=== PATIENT | female | born 1955 | race Caucasian/White ===

== ENCOUNTER 2017-04-21 10:43 | Outpatient (RCR) | payer BC ==
[~2017-04-21 10:43] MED LIST: BACL10TA PO; CANE1EAC26 MC; CYCL5TAB PO; DICL75TA2 PO; GABA-488 PO; HYDR-3820 PO; LEVO25TA5 PO; OXYC-197 PO; PRAV80TA2 PO; RANI300T4 PO; TIZA4CAP PO; TRAM50TA2 PO
== END 2017-05-01 13:00 | disposition home or self-care (01) ==
PROVIDERS: ATTEND Physician Assistant
DX: M48.06 Spinal stenosis, lumbar region (principal); M48.02 Spinal stenosis, cervical region; M70.62 Trochanteric bursitis, left hip

== ENCOUNTER → 2017-05-08 | Outpatient (CLI) | payer BC ==
--- NOTE | 2017-05-08 10:29 | Diagnostic Imaging Report ---
PROCEDURE: CT cervical spine without contrast. TECHNIQUE: Multiple contiguous axial images were obtained through the cervical spine without the use of intravenous contrast. Sagittal and coronal reformations were then performed. INDICATION: Neck pain. Status post spine fusion. FINDINGS: There is solid osseous fusion suggested between the vertebral bodies, C4-C7 levels with anterior plate and screws and disc spacers seen. The facet joints are not fused. The alignment of the posterior spinal line is satisfactory. There are remaining osteophytes eccentric to the left at C4/5, mild osteophytes at C5/6 and mild osteophytes at C6/7 level. There is a limited hemilaminectomy performed involving the inferior aspect of the left lamina of L4. There are mild posterior osteophytes along the uncovertebral joints at C3/4 bilaterally. The facet joints demonstrate mild degenerative changes. There is moderate to severe foraminal stenosis on the left at C4/5 level. Mild foraminal stenosis on the left side at L5/6 is seen. Mild to moderate foraminal stenosis bilaterally at C6/7 is noted. IMPRESSION: There is osseous fusion noted of vertebral bodies C4-C7 with intact anterior fusion hardware seen. Multilevel posterior osteophytes and uncovertebral joint arthropathy is described. There is multilevel foraminal stenosis. Dictated by: Dictated on workstation # [id number]
== END | disposition home or self-care (01) ==
LOC: RAD 08:59
PROVIDERS: ATTEND Orthopaedic Surgery Orthopaedic Surgery of the Spine
DX: M54.2 Cervicalgia (principal); Z98.1 Arthrodesis status
CPT/HCPCS: 72125

== ENCOUNTER → 2017-11-14 | Outpatient (CLI) | payer MEDICARE, OTHER ==
--- NOTE | 2017-11-14 10:37 | Diagnostic Imaging Report ---
PROCEDURE: MRI lumbar spine. TECHNIQUE: Multiplanar, multisequence MRI of the lumbar spine was performed without contrast. INDICATION: Back pain. FINDINGS: There is a transitional lumbosacral junction. There is prominent disc at S1/S2 seen. The alignment of the posterior spinal line is satisfactory. The vertebral body heights are preserved. There is Modic type I marrow edema changes around L4/L5 disc and the around S1/S2. There is disc desiccation particularly in the lower from lumbar spine with no significant disc height loss. There is a focal marrow lesion with the T1 and T2 hyperintensity seen in the sacrum and measures 1.5 x 1 x 1 cm to the right side of the central aspect of the body of S2 level. This is unchanged from 2015 exam and is most likely related to hemangioma. The cauda equina and conus medullaris appear grossly unremarkable. T12/L1: There is no disc herniation, no spinal canal or foraminal stenosis. L1/L2: There is a diffuse disc bulge and mild facet hypertrophy. No central canal or lateral recess stenosis. No foraminal stenosis. L2/L3: There is a mild disc bulge and there is a moderate facet hypertrophy bilaterally. No central canal, lateral recess or foramina stenosis. L3/L4: There is a mild disc bulge and moderate facet hypertrophy. No central canal, lateral recess or foraminal stenosis. L4/L5: There is a diffuse disc bulge and wciagzqd-hv-xzcgaj facet hypertrophy bilaterally. There is a mild central calcinosis reducing the AP dimension of the canal to 9.3 mm and there is bilateral mild lateral recess stenosis. There is moderate foramina stenosis on the right side abutting the exiting right L4 spinal nerve. The left foramen is patent. L5/S1: There is a diffuse disc bulge and bilateral severe facet hypertrophy. No central canal stenosis. There is a lateral recess stenosis of mild degree on the left and kcny-eh-thlymkoj degree on the right side. There is bilateral foraminal stenosis of xwregush-io-exyfdc degree worse on the left side with a prominent spur projecting into the foramen from the adjacent facet joint. S1/S2: No significant disc herniation. No spinal canal or foramina stenosis. IMPRESSION: Significant foraminal stenosis bilaterally at the L5/S1 and on the right side at L4/L5 level. Dictated by: Dictated on workstation # [id number]
== END ==
LOC: RAD 07:57
PROVIDERS: ATTEND Orthopaedic Surgery Orthopaedic Surgery of the Spine
DX: M48.07 Spinal stenosis, lumbosacral region (principal)
CPT/HCPCS: 72148

== ENCOUNTER 2017-12-20 15:11 | Outpatient (RCR) | payer MEDICARE, OTHER | END 2018-01-10 15:25 | disposition home or self-care (01) | PROVIDERS: ATTEND Orthopaedic Surgery Orthopaedic Surgery of the Spine | DX: M70.72 Other bursitis of hip, left hip (principal) ==

== ENCOUNTER → 2018-11-08 | Outpatient (CLI) | payer MEDICARE, OTHER ==
[~2018-11-08] MED LIST changes: -OXYC-197 PO; +OXYC1TAB87 PO
== END ==
LOC: RAD 10:10
PROVIDERS: ATTEND Internal Medicine
DX: Z12.31 Encounter for screening mammogram for malignant neoplasm of breast (principal)
CPT/HCPCS: 77067

== ENCOUNTER → 2021-08-23 | Outpatient (CLI) | payer MEDICARE, OTHER ==
[~2021-08-23] MED LIST changes: +ACHYD1T PO; -HYDR-3820 PO; -TRAM50TA2 PO; +TRM50T PO
--- NOTE | 2021-08-23 15:23 | Diagnostic Imaging Report ---
CT Lung Screening INDICATION: 21-hhdg-blmr smoking history, cessation in 2016, for baseline low-dose CT screening. TECHNIQUE: Noncontrast, low-dose CT imaging performed according to the lung cancer screening protocol. Auto Exposure Controls were utilize during the CT exam to meet ALARA standards for radiation dose reduction. COMPARISON: Baseline. FINDINGS: There is no lung mass. No suspicious pulmonary nodule. No acute infiltrate. No evidence for edema. Some heterogeneous air trapping, greatest in the upper lobes at the apices where there are few peripheral paraseptal thin-walled cysts. No tracheobronchomegaly. No thoracic lymphadenopathy. The aorta is nonaneurysmal. The visualized upper abdomen is nonacute. No suspicious chest wall lesion. IMPRESSION: No evidence for lung cancer or acute abnormalities. Continued annual low-dose CT screening as follow-up recommended. LUNG-RADS CATEGORY: 1 MODIFIER: None. OTHER SIGNIFICANT FINDINGS: Above. Dictated by: Dictated on workstation # [id number]
== END ==
LOC: RAD 14:15
PROVIDERS: ATTEND Internal Medicine
DX: Z12.2 Encounter for screening for malignant neoplasm of respiratory organs (principal); Z87.891 Personal history of nicotine dependence
CPT/HCPCS: 71271

== ENCOUNTER → 2021-08-31 | Outpatient (CLI) | payer MEDICARE, OTHER ==
--- NOTE | 2021-08-31 13:17 | Diagnostic Imaging Report ---
INDICATION: Postmenopausal state COMPARISON: None available FINDINGS: AP Spine L1-L4: [BMD (g/cm2): 1.017] [T-Score: -1.5] [Z-Score: 0.0] [BMD Previous: na] [BMD % Change: na] LT Hip Neck: [BMD (g/cm2): 0.699] [T-Score: -2.4] [Z-Score: -1.0] LT Hip Total: [BMD (g/cm2):0.696] [T-Score:-2.5] [Z-Score: -1.3] [BMD Previous: na] [BMD % Change: na] RT Hip Neck: [BMD (g/cm2):0.808] [T-Score:-1.7] [Z-Score:-0.2] RT Hip Total: [BMD (g/cm2):0.837] [T-score:-1.4] [Z-Score:-0.2] [BMD Previous:na] [BMD % Change:na] *Indicates significant change from prior examination based on 95% confidence level. World Health Organization criteria for BMD interpretation classify patients as Normal (T-score at or above -1.0), Osteopenic (T-score between -1.0 and -2.5) or Osteoporotic (T-score at or below -2.5). LIMITATIONS AND MODIFICATION: None. FRACTURE RISK (FRAX SCORE): The ten year probability of (%): Major Osteoporotic Fracture: [13.2] Hip Fracture: [2.8] IMPRESSION: 1. Osteoporosis. 2. Baseline examination. 3. See below National Osteoporosis Foundation guidelines on when to potentially initiate pharmacologic therapy. Based on the National Osteoporosis Foundation Guidelines, pharmacologic treatment should be initiated in any of the following, unless clinical conditions suggest otherwise: * Any patient with prior fragility fracture of the hip or vertebrae. A spine fracture indicates 5X risk for subsequent spine fracture and 2X risk for subsequent hip fracture. * Osteoporosis (T-score <-2.5). * Postmenopausal women and men age 50 and older with low bone mass/osteopenia (T-score between -1.0 and -2.5) by DXA and 10-year major osteoporotic fracture greater than 20% or a 10-year probability of hip fracture greater than 3%. These fracture risks are supplied above in the FRAX score, if applicable. * Clinician judgement and/or patient preferences may indicate treatment for people with 10-year fracture probabilities above or below these levels. Dictated by: Dictated on workstation # [id number]
== END ==
LOC: RAD 11:30
PROVIDERS: ATTEND Internal Medicine
DX: Z13.820 Encounter for screening for osteoporosis (principal); M81.0 Age-related osteoporosis without current pathological fracture; Z78.0 Asymptomatic menopausal state
CPT/HCPCS: 77080

== ENCOUNTER → 2022-02-03 | Outpatient (CLI) | payer MEDICARE, OTHER ==
[~2022-02-03] MED LIST changes: -CANE1EAC26 MC; +CANE1EAC44 MC
--- NOTE | 2022-02-03 11:43 | Diagnostic Imaging Report ---
INDICATION: Left hip pain. FINDINGS: 2 views. Femoral head is in good articulation with the acetabulum. There is narrowing of the joint space with moderate hypertrophic changes about the base of the femoral head and the acetabulum. There is sclerosis with subchondral cystic change of the acetabulum. There are no fractures. No soft tissue calcification. IMPRESSION: Moderate severe arthritic changes noted of the left hip. Dictated by: Dictated on workstation # [id number]
== END ==
LOC: ORTHO 11:11
PROVIDERS: ATTEND Orthopaedic Surgery
DX: M16.12 Unilateral primary osteoarthritis, left hip (principal)
CPT/HCPCS: 73502; G0463; 99203

== ENCOUNTER → 2022-04-12 | Outpatient (CLI) | payer MEDICARE, OTHER ==
--- NOTE | 2022-04-12 14:56 | Diagnostic Imaging Report ---
INDICATION: Bilateral hip pain. TIME OF EXAM: 12:00 PM. TECHNIQUE: An AP view of the pelvis and two views of each hip were obtained. FINDINGS: There are some degenerative changes involving the bilateral hips with joint space narrowing. There appears to be spurring at the femoral head/neck junctions bilaterally. There is a questionable lucency at the femoral head/neck junction on the lateral view of the left hip and a fracture cannot be entirely excluded. The rami appear intact. The SI joints and symphysis are not widened. IMPRESSION: Bilateral hip joint degenerative changes. There is a questionable lucency of the left hip and a fracture cannot be entirely excluded. CT or MRI of the left hip would be useful for further evaluation. Dictated by: Dictated on workstation # [id number]
== END ==
LOC: ORTHO 10:57
PROVIDERS: ATTEND Orthopaedic Surgery
DX: M16.12 Unilateral primary osteoarthritis, left hip (principal)
CPT/HCPCS: 73523

== ENCOUNTER 2022-04-19 08:42 | Outpatient (CLI) | payer MEDICARE, OTHER ==
[~2022-04-19] VITALS: Ht 154.9 cm; Wt 70.0 kg
[2022-04-19] MEDS ORDERED: ERGO1250 PO (09:17)
[2022-04-19] MEDS ORDERED: OMEP20TA56 PO (09:17)
[2022-04-19] MEDS ORDERED: GABA-490 PO (09:17)
[2022-04-19] MEDS ORDERED: GABA-486 PO (09:17)
[2022-04-19] MEDS ORDERED: ALEN70TA80 PO (09:17)
[2022-04-19] MEDS ORDERED: NAPR-1071 PO (09:17)
[2022-04-19] MEDS ORDERED: HYDR-3817 PO (10:20)
[2022-04-19 10:38] LABS: BASOPHILS % (AUTO) 1 % (0-10); EOSINOPHILS # (AUTO) 0.2 10^3/uL (0.0-0.3); EOSINOPHILS % (AUTO) 4 % (0-10); HEMATOCRIT 40 % (35-52); HEMOGLOBIN 13.4 g/dL (11.5-16.0); LYMPHOCYTES # (AUTO) 2.2 10^3/uL (1.0-4.0); LYMPHOCYTES % (AUTO) 42 % (12-44); MEAN CORPUSCULAR HEMOGLOBIN 34 pg (25-34); MEAN CORPUSCULAR HGB CONC 34 g/dL (32-36); MEAN CORPUSCULAR VOLUME 99 fL (80-99); MEAN PLATELET VOLUME 8.9 fL (9.0-12.2); MONOCYTES # (AUTO) 0.3 10^3/uL (0.0-1.0); MONOCYTES % (AUTO) 6 % (0-12); NEUTROPHILS # (AUTO) 2.4 10^3/uL (1.8-7.8); NEUTROPHILS % (AUTO) 47 % (42-75); PLATELET COUNT 215 10^3/uL (130-400); WHITE BLOOD COUNT 5.1 10^3/uL (4.3-11.0)
[2022-04-19 10:41] LABS: BILIRUBIN,URINE NEGATIVE (NEGATIVE); CLARITY,URINE SL CLOUDY; COLOR,URINE YELLOW; GLUCOSE, URINE (UA) NEGATIVE (NEGATIVE); KETONES,URINE NEGATIVE (NEGATIVE); LEUKOCYTE ESTERASE ,URINE 3+ (NEGATIVE); NITRITE,URINE NEGATIVE (NEGATIVE); PROTEIN,URINE NEGATIVE (NEGATIVE)
[2022-04-19 10:44] VITALS: BP 130/53
[2022-04-19 10:55] LABS: BACTERIA,URINE MODERATE /HPF; RBC,URINE RARE /HPF; SQUAMOUS EPITHELIAL CELL,UR 0-2 /HPF; WBC,URINE 25-50 /HPF
[2022-04-19 11:05] LABS: CALCIUM 8.8 MG/DL (8.5-10.1); CREATININE SERUM 0.78 MG/DL (0.60-1.30); POTASSIUM 3.9 MMOL/L (3.6-5.0)
[2022-04-19 13:37] LABS: INR 0.9 (0.8-1.4)
--- NOTE | 2022-04-19 14:10 | Diagnostic Imaging Report ---
Indication: Preop for hip replacement surgery. Time of Exam: 11:13 AM No prior studies are available for comparison. Heart size normal. Lungs are clear. Lungs are hyperinflated consistent with COPD. No effusion or pneumothorax is seen. There are postop changes in the lower cervical spine. IMPRESSION: COPD. No acute feature is detected. Dictated by: Dictated on workstation # [id number]
== END 2022-04-19 10:59 ==
LOC: PREOP 08:42
PROVIDERS: ATTEND Orthopaedic Surgery
DX: Z01.812 Encounter for preprocedural laboratory examination (principal); M16.12 Unilateral primary osteoarthritis, left hip
CPT/HCPCS: 36415; 71046; 80048; 81000; 85025; 85610; 85730; 87077; 87081; 87088; 93005

== ENCOUNTER 2022-05-02 06:00 | Inpatient (IN) | payer MEDICARE, OTHER ==
[2022-05-02] VITALS (11 sets, daily range): BP systolic 85–169; BP diastolic 46–101
[~2022-05-02] VITALS: Ht 154.9 cm; Wt 70.0 kg
[~2022-05-02 06:00] MED LIST changes: +ALEN70TA80 PO; +ERGO1250 PO; +GABA-486 PO; +GABA-490 PO; +HYDR-3817 PO; +NAPR-1071 PO; +OMEP20TA56 PO
[2022-05-02] MEDS ORDERED: CLINDAMYCIN 600 MG/50 ML IVPB 50 ML IV ONE ×2 (06:32→06:45)
[2022-05-02] MEDS: LACTATED RINGERS 1,000 ML IV PRN ×2 (06:40→09:10)
[2022-05-02] MEDS ORDERED: TRANEXAMIC ACID IR ONE ×2 (06:45)
[2022-05-02] MEDS ORDERED: SODIUM CHLORIDE IR ONE ×2 (06:45)
--- NOTE | 2022-05-02 07:03 | Progress Note-Pre Operative ---
Pre-Operative Progress Note H&P Reviewed The H&P was reviewed, patient examined and no changes noted. Date Seen by Provider: May 02, 2022 Time Seen by Provider: 07:00 Date H&P Reviewed: May 02, 2022 Time H&P Reviewed: 07:00 Pre-Operative Diagnosis: Left Hip Primary Osteoarthritis JAILYN MERCHANT MD May 02, 2022 07:03
[2022-05-02] MEDS ORDERED: LIDOCAINE PF 2% 5 ML (XYLOCAINE) VIAL ONE (07:06)
[2022-05-02] MEDS ORDERED: proPOfol 200 MG/20 ML (DIPRIVAN) VIAL IV ONE (07:06)
[2022-05-02] MEDS ORDERED: ROCURONIUM 50 MG/5 ML (ZEMURON) VIAL IV ONE (07:06)
[2022-05-02] MEDS ORDERED: ONDANSETRON 4 MG/2 ML (SDV) Z0FRAN ONE (07:06)
[2022-05-02] MEDS ORDERED: SEVOFLURANE (ULTANE) 15 ML INHAL SOLN ONE ×2 (07:06→09:40)
[2022-05-02] MEDS ORDERED: fentaNYL INJ 100 MCG/2 ML AMP ONE (07:07)
[2022-05-02] MEDS ORDERED: MIDAZOLAM 2 MG/2 ML (VERSED) VIAL ONE (07:07)
[2022-05-02] MEDS ORDERED: BISACODYL 5 MG (DULCOLAX) TABLET PO PRN (10:30)
[2022-05-02] MEDS ORDERED: ACETAMINOPHEN 500 MG TAB (TYLENOL) PO PRN (10:30)
[2022-05-02] MEDS ORDERED: MILK OF MAGNESIA 400 MG/5 ML 30 ML UDC PO PRN (10:30)
[2022-05-02] MEDS ORDERED: ONDANSETRON 4 MG/2 ML (SDV) Z0FRAN IV PRN (10:30)
--- NOTE | 2022-05-02 10:36 | Anesthesia-General Post-Op ---
General Patient Condition Mental Status/LOC: Same as Preop Cardiovascular: Satisfactory Nausea/Vomiting: Absent Respiratory: Satisfactory Pain: Controlled Complications: Absent Post Op Complications Complications None Follow Up Care/Instructions Patient Instructions None needed. Anesthesia/Patient Condition Patient Condition Patient is doing well, no complaints, stable vital signs, no apparent adverse anesthesia problems. No complications reported per nursing. SLIME MERRILL CRNA May 02, 2022 10:36
[2022-05-02] MEDS ORDERED: BUPIVACAINE 0.5% 30 ML (SENSORCAINE) VIAL ONE (10:37)
[2022-05-02] MEDS ORDERED: morphine INJ 10 MG/ML 1ML (SYR OR VIAL) IVP ONE (10:45)
[2022-05-02] MEDS ORDERED: ONDANSETRON 4 MG/2 ML (SDV) Z0FRAN IVP PRN (10:45)
[2022-05-02] MEDS ORDERED: PROMETHAZINE INJ 25 MG/ML (PHENERGAN) AMP IVP ONE (10:45)
[2022-05-02] MEDS ORDERED: HYDROmorphone 2 MG/ML VIAL (DILAUDID) IV ONE (10:45)
[2022-05-02] MEDS ORDERED: HYDROmorphone 2 MG/ML VIAL (DILAUDID) ONE (10:54)
--- NOTE | 2022-05-02 12:04 | Diagnostic Imaging Report ---
Indication: Left hip replacement. Time of Exam: 10:46 AM Correlation is made with prior mammogram from 04/12/2022. Since prior study patient has undergone left total hip arthroplasty. The prosthetic elements are in good position. No fracture or loosening is seen. Right hip does show osteoarthritic degenerative changes with superior medial joint space narrowing as well as osteophyte formation at the femoral head and neck junction. Rami are intact. IMPRESSION: 1. Satisfactory postop appearance to the left hip. No complicating features detected. 2. Osseous 3-D changes right hip. Dictated by: Dictated on workstation # [id number]
[2022-05-02] MEDS: NS IV 1000 ML 1,000 ML IV SCH ×2 (12:08→20:43)
[2022-05-02] MEDS: CLINDAMYCIN 600 MG/50 ML IVPB 50 ML IV SCH ×2 (13:06→20:43)
[2022-05-02] MEDS: HYDROcodone/APAP 7.5 MG/325 MG (LORTAB, LORCET PLUS) TABLET PO PRN ×2 (13:06→17:51)
--- NOTE | 2022-05-02 13:36 | Operative Report - Ortho ---
Operative Report Surgeon (s)/Practice Manager (s) Surgeon JAILYN MERCHANT MD Practice Manager n/a Pre-Operative Diagnosis Left Hip Primary Osteoarthritis Post-Operative Diagnosis same Operative Report Date of Procedure: May 02, 2022 Name of Procedure Performed: Left Total Hip Arthroplasty Description & Findings After obtaining informed consent and marking the patient in the preoperative holding area, the patient did receive antibiotics and was taken to the operating room. General anesthesia was induced and patient was positioned in the lateral decubitus position with the left side up. Left lower extremity was prepped and draped in the usual sterile fashion. Surgical timeout was taken. Posterolateral approach was utilized. Capsule and external rotators were taken down in one layer. Hip was dislocated without difficulty. Femoral neck osteotomy was performed and femoral head was removed. Acetabulum was exposed. Labrum and soft tissue was removed from the acetabulum. Sequential reaming was began beginning with a 43 mm reamer and reaming to a 50 mm. 50 mm trial was placed and had good fit. Trial was removed and the acetabulum was lavaged with normal saline; a 50 mm cup was impacted into place and had excellent press fit. A trial liner was put into place. Attention was turned to the femoral side, a Bike HUD cutter osteotome was used to removed bone near the greater trochanter. Canal finder was inserted followed by the lateralizing reamer. Sequential broaching was began with a 0 and was broached to a 4. Calcar planer was used. Trial 127 degree neck and -5 mm head were put into place. Hip was located and was found to have been lengthened. Hip was dislocate and the level of the femoral neck osteotomy was redefined. Size 4 broach with 127 neck and -5 head were oncea again trialed. Leg lengths were grossly equal; the hip was stable in position of sleep, and stable in flexion and internal rotation. This was accepted. Hip was dislocated. Acetabulum was exposed. Trial liner was removed and a polyethylene liner was locked into place; freer was used to check the locking mechanism. Attention was turned back to the femur, broach was removed and the canal was irrigated. A size 4 Accolade II was impacted into place and set at the same level as the broach. A -5 mm ceramic head was impacted onto the shaw taper of the stem. Hip was once again located and found to have grossly equal leg lengths with stability in position of sleep as well as flexion and internal rotation. A dilute betadine soak was performed followed by irrigation. Tranexamic acid was applied for hemostasis. The fascial layer was closed with #1 Ticron. The subcutaneous layer was closed with 2-0 Vicryl. Skin was closed with cee. Wound was dressed with xeroform, 4x4s, ABD, and paper tape. Patient was placed in abduction pillow and transferred to his hospital bed without difficulty and was stable to the recovery room. Anesthesia Type General Estimated Blood Loss 300 mL Specimen(s) collected/removed None JAILYN MERCHANT MD May 02, 2022 13:36
--- NOTE | 2022-05-02 13:40 | Physical Therapy Evaluation ---
PT Evaluation-General Medical Diagnosis Admission Date May 02, 2022 at 06:00 Medical Diagnosis: left HTOM Onset Date: May 02, 2022 Therapy Diagnosis Therapy Diagnosis: impaired mobility/weakness Height/Weight Height (Feet): 5 Height (Inches): 1.00 Weight (Pounds): 159 Weight (Ounces): 1.0 Weight Bear Status Right Lower Extremity: Right Full Weight Bearing Left Lower Extremity: Left Weight Bearing/Tolerated Referral Physician: Maricarmen Reason for Referral: Evaluation/Treatment Medical History Pertinent Medical History: OA Current History s/p elective left THOM Reviewed History: Yes Social History Home: Single Level Current Living Status: Other Family Entry Into Home: Stairs With Railing Prior Prior Level of Function SCALE: Activities may be completed with or without assistive devices. 2-Ftjsqkhgry-rdhiunf completes the activity by him/herself with no assistance from a helper. 5-Set-up or Clean-up Assistance-helper sets up or cleans up; patient completes activity. [place] assists only prior to or following the activity. 4-Supervision or Touching Assistance-helper provides verbal cues and/or touching/steadying and/or contact guard assistance as patient completes activity. Assistance may be provided throughout the activity or intermittently. 3-Partial/Moderate Assistance-helper does LESS THAN HALF the effort. [place] lifts, holds or supports trunk or limbs, but provides less than half the effort. 2-Substantial/Maximal Assistance-helper does MORE THAN HALF the effort. [place] lifts or holds trunk or limbs and provides more than half the effort. 6-Ppifykvds-qwhdlr does ALL the effort. Patient does none of the effort to complete the activity. Or, the assistance of 2 or more helpers is required for the patient to complete the activity. If activity was not attempted, code reason: 7-Patient Refused. 9-Not Applicable-not attempted and the patient did not perform the activity before the current illness, exacerbation or injury. 10-Not Attempted due to Environmental Limitations-(lack of equipment, weather restraints, etc.). 88-Not Attempted due to Medical Conditions or Safety Concerns. Bed Mobility: 6 Transfers (B,C,W/C): 6 Gait: 6 Stairs: 6 Indoor Mobility (Ambulation): Independent Stairs: Independent Prior Devices Use: None PT Evaluation-Current Subjective Patient agrees to PT. Pain Numeric Pain Scale: 5-Moderate Pain Location: Left Location Body Site: Hip Pain Description: Acute Objective Patient Orientation: Normal For Age Attachments: Oxygen, Lu Catheter, IV ROM/Strength ROM Lower Extremities left hip precautions/right LE WFL Strength Lower Extremities left LE 2/5 grossly/right LE 3/5 Integumentary/Posture Integumentary refer to nursing notes Bladder Incontinence: Lu Cath Posture WFL Neuromuscular (Tone, Coordination, Reflexes) grossly intact Sensory Vision: Functional Hearing: Functional Transfers Roll Left to Right (QC): 2 Sit to Lying (QC): 2 Lying to Sitting/Side of Bed(Q: 2 Sit to Stand (QC): 88 patient too medicated to perform OOB activity at this time Gait Does the Patient Walk?: No and Walking Goal IS indicated Mode of Locomotion: Walk Anticipated Mode of Locomotion: Walk Gait Assistive Device: FWW Balance Sitting Static: Fair Sitting Dynamic: Fair Assessment/Needs 66 y.o. female, will benefit from skilled PT to address functional strength and mobility to improve current LOF to safely return to home at maximum LOF. Rehab Potential: Good PT Second Hand Paper Machine Goals Second Hand Paper Machine Goals PT Second Hand Paper Machine Goals Time Frame: May 21, 2022 Roll Left & Right (QC): 6 Sit to Lying (QC): 6 Lying-Sitting on Side/Bed(QC): 6 Sit to Stand (QC): 6 Chair/Xcf-sm-Hpcbb Xfer(QC): 6 Toilet Transfer (QC): 6 Car Transfer (QC): 6 Walk 10 feet (QC): 6 Walk 50ft with 2 Turns (QC): 6 Walk 150 ft (QC): 6 PT Plan Problem List Problem List: Activity Tolerance, Functional Strength, Safety, Balance, Gait, Transfer, Bed Mobility Treatment/Plan Treatment Plan: Continue Plan of Care Treatment Plan: Bed Mobility, Education, Functional Activity Gera, Functional Strength, Gait, Safety, Therapeutic Exercise, Transfers Treatment Duration: May 21, 2022 Frequency: 11 times per week Estimated Hrs Per Day: .5 hour per day Patient and/or Family Agrees t: Yes Time/GCodes Time In: 1305 Time Out: 1321 Total Billed Treatment Time: 1321 Total Billed Treatment 1 visit EVModC 16 min WU ESPINOZA PT May 02, 2022 13:40
[2022-05-02] MEDS: DOCUSATE SODIUM 100 MG (COLACE) CAP PO SCH (20:36)
[2022-05-02] MEDS: GABAPENTIN 400 MG (NEURONTIN) CAP PO SCH (20:36)
[2022-05-02] MEDS ORDERED: CELECOXIB 100 MG (CeleBREX) CAP PO SCH (21:00)
[2022-05-03 00:09] VITALS: BP 126/58
[2022-05-03] MEDS: HYDROcodone/APAP 7.5 MG/325 MG (LORTAB, LORCET PLUS) TABLET PO PRN ×3 (00:37→18:57)
[2022-05-03 04:12] VITALS: BP 117/58
[2022-05-03] MEDS: GABAPENTIN 100 MG (NEURONTIN) CAP PO SCH ×4 (06:08→20:16)
[2022-05-03] MEDS: NS IV 1000 ML 1,000 ML IV SCH (06:10)
[2022-05-03 07:42] VITALS: BP 134/60
[2022-05-03] MEDS: CELECOXIB 100 MG (CeleBREX) CAP PO SCH ×2 (07:49→17:22)
[2022-05-03] MEDS: DOCUSATE SODIUM 100 MG (COLACE) CAP PO SCH ×2 (07:49→20:16)
[2022-05-03] MEDS: APIXABAN 2.5 MG (ELIQUIS) TABLET PO SCH ×2 (07:55→20:16)
--- NOTE | 2022-05-03 08:23 | Progress Note - Ortho ---
Progress Note Subjective Date of Exam 05/03/22 Chief Complaint POD #1 L THOM HPI/Events since last exam some difficulty with nausea yesterday, pain controlled this AM, getting ready to work with therapy Review of Systems - Allergies: Coded Allergies: Penicillins (Verified Allergy, Unknown, HIVES, 04/19/22) aspirin (Verified Allergy, Unknown, NAUSEA, 04/19/22) nitrofurantoin (Verified Allergy, Unknown, 04/19/22) Home Meds Reported Medications Hydrocodone/Acetaminophen (Hydrocodone-Acetamin 7.5-325) Unknown Strength Tablet, PO, TAB 04/19/22 Ergocalciferol (Vitamin D2) (Vitamin D2) 1,250 Mcg (78602 Unit) Capsule, 1250 MCG PO WEEK, CAP 04/19/22 Omeprazole (Omeprazole) 20 Mg Tablet.dr, 20 MG PO DAILY, TAB 04/19/22 Gabapentin (Gabapentin) 400 Mg Capsule, 400 MG PO HS, CAP 04/19/22 Gabapentin (Gabapentin) 100 Mg Capsule, 100 MG PO BID for Neuropathic pain, CAP 04/19/22 Pravastatin Sodium (Pravastatin Sodium) 80 Mg Tablet, 80 MG PO DAILY, TAB 02/16/16 Objective Exam L Hip: Dressing C/D/I, +DF of ankle, no s/s of DVT Vital Signs Vital Signs Date Time Temp Pulse Resp B/P (MAP) Pulse Ox O2 Delivery O2 Flow Rate FiO2 05/03/22 07:42 36.2 68 18 134/60 (84) 96 Room Air 05/03/22 04:12 36.2 75 16 117/58 (77) 95 Room Air 05/03/22 00:09 36.2 83 16 126/58 (80) 95 Room Air 05/02/22 21:45 95 Room Air 05/02/22 20:15 36.0 69 18 102/66 (78) 95 Room Air 05/02/22 16:25 35.9 68 18 127/60 (82) 93 Room Air 05/02/22 11:45 OxyMask 2.00 05/02/22 11:32 36.2 72 17 133/77 (95) 100 OxyMask 2.00 05/02/22 11:20 36.3 10 124/69 (87) 99 OxyMask 2 05/02/22 11:20 Room Air 05/02/22 11:10 Room Air 05/02/22 11:10 11 108/52 (70) 95 Room Air 05/02/22 11:00 11 119/67 (84) 99 OxyMask 2 05/02/22 10:55 OxyMask 2 05/02/22 10:50 12 93/75 (81) 100 OxyMask 4 05/02/22 10:40 14 104/84 (91) 98 OxyMask 8 05/02/22 10:40 OxyMask 8 05/02/22 10:30 18 85/50 (62) 99 OxyMask 8 05/02/22 10:27 OxyMask 8 05/02/22 10:27 36.3 18 101/46 (64) 99 OxyMask 8 I & O 05/03/22 07:00 Intake Total 1672 ml Output Total 1420 ml Balance 252 ml Lab Results Laboratory Tests 05/03/22 05:00: Hemoglobin 10.0L, Hematocrit 30L Imaging Post Op AP Pelvis dated 05/02/22 was reviewed from PACS and demonstrated a left total hip arthroplasty with components in good position Assessment and Plan Assessment L Hip Primary OA s/p L THOM Problem List L Hip Primary OA s/p L THOM Plan DVT Prophylaxis PT/OT Possible home with home health tomorrow depending on progress Final Diagonsis L Hip Primary OA s/p L THOM Level of the visit: Level 3 (postop global) JAILYN MERCHANT MD May 03, 2022 08:23
[2022-05-03] MEDS ORDERED: NON-FORMULARY MEDICATION 1 EA EA (Pravastatin Sodium 80 MG) PO SCH (09:00)
--- NOTE | 2022-05-03 09:38 | Physical Therapy Daily Note ---
PT Daily Note-Current Subjective Patient is very agreeable to participate with therapy. Pain Numeric Pain Scale: 5-Moderate Pain Location: Left Location Body Site: Hip Pain Description: Acute Mental Status Patient Orientation: Normal For Age Attachments: IV Transfers SCALE: Activities may be completed with or without assistive devices. 7-Nbvybmdzby-rntnrlo completes the activity by him/herself with no assistance from a helper. 5-Set-up or Clean-up Assistance-helper sets up or cleans up; patient completes activity. [place] assists only prior to or following the activity. 4-Supervision or Touching Assistance-helper provides verbal cues and/or touching/steadying and/or contact guard assistance as patient completes activity. Assistance may be provided throughout the activity or intermittently. 3-Partial/Moderate Assistance-helper does LESS THAN HALF the effort. [place] lifts, holds or supports trunk or limbs, but provides less than half the effort. 2-Substantial/Maximal Assistance-helper does MORE THAN HALF the effort. [place] lifts or holds trunk or limbs and provides more than half the effort. 3-Wqaegrdny-qmqkmm does ALL the effort. Patient does none of the effort to complete the activity. Or, the assistance of 2 or more helpers is required for the patient to complete the activity. If activity was not attempted, code reason: 7-Patient Refused. 9-Not Applicable-not attempted and the patient did not perform the activity before the current illness, exacerbation or injury. 10-Not Attempted due to Environmental Limitations-(lack of equipment, weather restraints, etc.). 88-Not Attempted due to Medical Conditions or Safety Concerns. Lying to Sitting/Side of Bed(Q: 3 Sit to Stand (QC): 4 Chair/Vqd-jm-Wmuxg Xfer(QC): 4 Toilet Transfer (QC): 4 Weight Bearing Right Lower Extremity: Right Full Weight Bearing Left Lower Extremity: Left Weight Bearing/Tolerated Gait Training Distance: 250' Walk 10 feet (QC): 4 Walk 50 ft with 2 Turns(QC): 4 Walk 150 ft (QC): 4 Gait Assistive Device: FWW slow, steady, reciprocal pattern Exercises Supine Ex: Ankle pumps, Quad Set, Heel Slides Supine Reps: 12 Seated Therapy Exercises: Ankle pumps, Long arc quads Seated Reps: 15 Assessment Patient progressing with treatment plan and per patient, will dismiss to home tomorrow. PT to increase activity as tolerated by patient. PT Mcfp Goals Mcfp Goals PT Mcfp Goals Time Frame: May 21, 2022 Roll Left & Right (QC): 6 Sit to Lying (QC): 6 Lying-Sitting on Side/Bed(QC): 6 Sit to Stand (QC): 6 Chair/Nmh-ur-Rfxcv Xfer(QC): 6 Toilet Transfer (QC): 6 Car Transfer (QC): 6 Walk 10 feet (QC): 6 Walk 50ft with 2 Turns (QC): 6 Walk 150 ft (QC): 6 PT Plan Treatment/Plan Treatment Plan: Continue Plan of Care Treatment Plan: Bed Mobility, Education, Functional Activity Gera, Functional Strength, Gait, Safety, Therapeutic Exercise, Transfers Treatment Duration: May 21, 2022 Frequency: 11 times per week Estimated Hrs Per Day: .5 hour per day Patient and/or Family Agrees t: Yes Time/GCodes Time In: 811 Time Out: 839 Total Billed Treatment Time: 28 Total Billed Treatment 1 visit EX 14 min GT 14 min WU ESPINOZA PT May 03, 2022 09:38
--- NOTE | 2022-05-03 11:05 | Physical Therapy Progress Note ---
Therapy Progress Note Patient reports she is up independently in hallway and in room. PT reviewed hip precautions with patient accurately stating them. PT will continue to address patient recovery needs. Patient to continue to be up independent PRN and perform exercises independently. 1 visit WU ESPINOZA PT May 03, 2022 11:05
--- NOTE | 2022-05-03 11:56 | Occupational Therapy Eval ---
OT Evaluation-General/PLF Medical Diagnosis Admission Date May 02, 2022 at 06:00 Medical Diagnosis: left THOM Onset Date: May 02, 2022 Therapy Diagnosis Therapy Diagnosis: decreased ADL status Height/Weight Height (Feet): 5 Height (Inches): 1.00 Weight (Pounds): 159 Weight (Ounces): 1.0 Precautions Comments L THOM precautions Weight Bear Status Weight Bearing Restriction: Weight Bearing/Tolerated Referral Physician: Maricarmen Referral Reason: Evaluation/Treatment Medical History Pertinent Medical History: OA Current History Elective L THOM Social History Home: Single Level Current Living Status: Other Family Entry Into Home: Stairs With Railing ADL-Prior Level of Function SCALE: Activities may be completed with or without assistive devices. 6-Qohcsbytfy-xnehpfa completes the activity by him/herself with no assistance from a helper. 5-Set-up or Clean-up Assistance-helper sets up or cleans up; patient completes activity. [place] assists only prior to or following the activity. 4-Supervision or Touching Assistance-helper provides verbal cues and/or touching/steadying and/or contact guard assistance as patient completes activity. Assistance may be provided throughout the activity or intermittently. 3-Partial/Moderate Assistance-helper does LESS THAN HALF the effort. [place] lifts, holds or supports trunk or limbs, but provides less than half the effort. 2-Substantial/Maximal Assistance-helper does MORE THAN HALF the effort. [place] lifts or holds trunk or limbs and provides more than half the effort. 3-Nymcnhwbj-fuuftq does ALL the effort. Patient does none of the effort to complete the activity. Or, the assistance of 2 or more helpers is required for the patient to complete the activity. If activity was not attempted, code reason: 7-Patient Refused. 9-Not Applicable-not attempted and the patient did not perform the activity before the current illness, exacerbation or injury. 10-Not Attempted due to Environmental Limitations-(lack of equipment, weather restraints, etc.). 88-Not Attempted due to Medical Conditions or Safety Concerns. ADL PLOF Comments Pt IND with ADLs and functional mobility, no AD. She has a tub/shower, no SC. Self Care: Independent Functional Cognition: Independent DME/Equipment: Tub/Shower OT Current Status Subjective Pt seated in recliner prior to OT eval/tx. Pt agreeable to OT eval/tx. Mental Status/Objective Patient Orientation: Person, Place, Situation (Pt. able to recall 1/3 THOM precations) Current Hand Dominance: Right Upper Extremity ROM WFL Upper Extremity Strength WFL ADL-Treatment Eating (QC): 6 Lower Body Dressing (QC): 4 (SBA, pt required VCs with contract law specialist, able to thread BLEs into pants.) On/Off Footwear (QC): 4 (Pt able to doff/don R gripper sock with education on AE, min VCs.) Toileting Hygiene (QC): 3 (Min A for thoroughness with hygiene.) Other Treatments Pt seated in recliner prior to OT eval/tx. Pt provided answers to eval questions and recalled 1/3 THOM precautions, VCs needed to recall other 2/3. Pt received education over sock aid and contract law specialist and practiced donning/doffing pants and R gripper sock, min-mod VCs required for threading and sequencing due to being unfamiliar with AE. Pt also received education on energy conservation daksha hniques. OT recommended hip kit and tub bench to adhere to THOM precautions and conserve energy upon d/c. Pt left in recliner with call light within reach and all needs met. Education OT Patient Education: Correct positioning, Energy conservation, Modified ADL techniques, Progress toward Goal/Update tx plan, Purpose of tx/functional activities, Rehab process, Use of adapted equipment Teaching Recipient: Patient Teaching Methods: Demonstration, Discussion Response to Teaching: Verbalize Understanding, Return Demonstration OT Usp Goals Usp Goals Time Frame: May 11, 2022 Toileting Hygiene (QC): 6 Shower/Bathe Self (QC): 4 Upper Body Dressing (QC): 6 Lower Body Dressing (QC): 6 On/Off Footwear (QC): 6 Additional Goals: 1-Demonstrate ADL Tasks, 2-Verbalize Understanding, 3- ImproveStrength/Gera 1=Demonstrate adherence to instructed precautions during ADL tasks. 2=Patient will verbalize/demonstrate understanding of assistive devices/modifications for ADL. 3=Patient will improve strength/tolerance for activity to enable patient to perform ADL's. OT Education/Plan Problem List/Assessment Assessment: Decreased Activ Tolerance, Impaired Funct Balance, Impaired I ADL's, Impaired Self-Care Skills Discharge Recommendations Plan/Recommendations: Continue POC Equpiment Recommendations-D/C: Extended Bath Bench, Hip Kit Treatment Plan/Plan of Care Patient would benefit from OT for education, treatment and training to promote independence in ADL's, mobility, safety and/or upper extremity function for ADL's. Plan of Care: ADL Retraining, Functional Mobility, UE Funct Exercise/Act Treatment Duration: May 11, 2022 Frequency: 3 times per week (3-5x per week) Rehab Potential: Good Time/GCodes Start Time: 10:54 Stop Time: 11:17 Total Time Billed (hr/min): 23 Billed Treatment Time 1, EVL (10'), ADL (13') JOSH ZHOU OT May 03, 2022 11:55
[2022-05-03 11:59] VITALS: BP 126/63
[2022-05-03 15:58] VITALS: BP 103/49
[2022-05-03 19:28] VITALS: BP 111/52
[2022-05-03] MEDS: GABAPENTIN 400 MG (NEURONTIN) CAP PO SCH (20:16)
[2022-05-04] VITALS: BP 134/59
[2022-05-04] MEDS: HYDROcodone/APAP 7.5 MG/325 MG (LORTAB, LORCET PLUS) TABLET PO PRN ×2 (03:23→09:46)
[2022-05-04 03:59] VITALS: BP 133/60
[2022-05-04 06:05] LABS: HEMOGLOBIN 9.8 g/dL (11.5-16.0)
[2022-05-04 07:40] VITALS: BP 95/51
[2022-05-04] MEDS: CELECOXIB 100 MG (CeleBREX) CAP PO SCH (09:43)
[2022-05-04] MEDS: DOCUSATE SODIUM 100 MG (COLACE) CAP PO SCH (09:43)
[2022-05-04] MEDS: APIXABAN 2.5 MG (ELIQUIS) TABLET PO SCH (09:44)
--- NOTE | 2022-05-04 11:03 | Physical Therapy Daily Note ---
PT Daily Note-Current Subjective Upon arrival, pt was laying in bed. Pt reports that her L hip is sore. Pt agrees to PT. Pain Comment: Pt reports pain, but not rated. Mental Status Patient Orientation: Person, Place, Time, Situation Transfers SCALE: Activities may be completed with or without assistive devices. 9-Ijsbdxpplp-mtolplr completes the activity by him/herself with no assistance from a helper. 5-Set-up or Clean-up Assistance-helper sets up or cleans up; patient completes activity. [place] assists only prior to or following the activity. 4-Supervision or Touching Assistance-helper provides verbal cues and/or touching/steadying and/or contact guard assistance as patient completes activity. Assistance may be provided throughout the activity or intermittently. 3-Partial/Moderate Assistance-helper does LESS THAN HALF the effort. [place] lifts, holds or supports trunk or limbs, but provides less than half the effort. 2-Substantial/Maximal Assistance-helper does MORE THAN HALF the effort. [place] lifts or holds trunk or limbs and provides more than half the effort. 9-Esyvevwbf-dzfxwp does ALL the effort. Patient does none of the effort to complete the activity. Or, the assistance of 2 or more helpers is required for the patient to complete the activity. If activity was not attempted, code reason: 7-Patient Refused. 9-Not Applicable-not attempted and the patient did not perform the activity before the current illness, exacerbation or injury. 10-Not Attempted due to Environmental Limitations-(lack of equipment, weather restraints, etc.). 88-Not Attempted due to Medical Conditions or Safety Concerns. Lying to Sitting/Side of Bed(Q: 3 Sit to Stand (QC): 3 Weight Bearing Right Lower Extremity: Right Full Weight Bearing Left Lower Extremity: Left Weight Bearing/Tolerated Gait Training Does the Patient Walk?: Yes Distance: 120' Walk 10 feet (QC): 4 Walk 50 ft with 2 Turns(QC): 4 Gait Persons Needed: 1 Gait Assistive Device: FWW Pt ambulated with a slow and steady GT. Pt showed no LOB, and keep hip precautions. Exercises Supine Ex: Ankle pumps (2 10x), Heel Slides (2 10x& 5x), Hip abd/add (10x ) Treatments Pt performed and completed all Exs listed above, Pt performed hip abd, with pillow in between legs as a precaution. Pt stated that she had a pain in her hip before PT. During tx session, pts RN arrives to check on pt. As PT was getting ready to conclude PT, pt states that she wanted to stand, and decided to ambulate down mandel and back. Once PT was concluded, pt was seated in recliner, with call light and tray in reach and all needs met. Pt states that Doctor should be seeing her soon. Pt wanted PT to deliver a question to OT. Assessment Current Status: Good Progress Pt would benefit from continued PT to improve an transfers and strength. Pt states that she has been getting up by herself, PT reported statement to pts RN. PT Plastics Production Machine Operator Goals Plastics Production Machine Operator Goals PT Alf Goals Time Frame: May 21, 2022 Roll Left & Right (QC): 6 Sit to Lying (QC): 6 Lying-Sitting on Side/Bed(QC): 6 Sit to Stand (QC): 6 Chair/Ogo-ra-Bqdob Xfer(QC): 6 Toilet Transfer (QC): 6 Car Transfer (QC): 6 Walk 10 feet (QC): 6 Walk 50ft with 2 Turns (QC): 6 Walk 150 ft (QC): 6 PT Plan Problem List Problem List: Functional Strength, Transfer Treatment/Plan Treatment Plan: Continue Plan of Care Treatment Plan: Bed Mobility, Education, Functional Activity Gera, Functional Strength, Gait, Safety, Therapeutic Exercise, Transfers Treatment Duration: May 21, 2022 Frequency: 11 times per week Estimated Hrs Per Day: .5 hour per day Patient and/or Family Agrees t: Yes Safety Risks/Education Patient Education: Transfer Techniques Teaching Recipient: Patient Teaching Methods: Discussion Response to Teaching: Verbalize Understanding Time/GCodes Time In: 919 Time Out: 1020 Total Billed Treatment Time: 61 Total Billed Treatment 1, GT 2 (30), EX 2 (31) DENISE GODFREY UX INFORMATION ARCHITECT May 04, 2022 11:03
[2022-05-04 11:34] VITALS: BP 104/57
--- NOTE | 2022-05-04 11:39 | Occupational Ther Daily Note ---
OT Current Status-Daily Note Subjective Pt up in recliner, agreeable to OT Tx. Pt hyperverbal during tx, requiring redirection to task. Mental Status/Objective Patient Orientation: Person, Place, Situation ADL-Treatment Therapy Code Descriptions/Definitions Functional [place] Measure: 0=Not Assessed/NA 4=Minimal Assistance 1=Total Assistance 5=Supervision or Setup 2=Maximal Assistance 6=Modified [place] 3=Moderate Assistance 7=Complete IndependenceSCALE: Activities may be completed with or without assistive devices. 8-Gwyihibbur-fxejzgj completes the activity by him/herself with no assistance from a helper. 5-Set-up or Clean-up Assistance-helper sets up or cleans up; patient completes activity. [place] assists only prior to or following the activity. 4-Supervision or Touching Assistance-helper provides verbal cues and/or touching/steadying and/or contact guard assistance as patient completes activity. Assistance may be provided throughout the activity or intermittently. 3-Partial/Moderate Assistance-helper does LESS THAN HALF the effort. [place] lifts, holds or supports trunk or limbs, but provides less than half the effort. 2-Substantial/Maximal Assistance-helper does MORE THAN HALF the effort. [place] lifts or holds trunk or limbs and provides more than half the effort. 6-Qvanbiorq-oasuin does ALL the effort. Patient does none of the effort to complete the activity. Or, the assistance of 2 or more helpers is required for the patient to complete the activity. If activity was not attempted, code reason: 7-Patient Refused. 9-Not Applicable-not attempted and the patient did not perform the activity before the current illness, exacerbation or injury. 10-Not Attempted due to Environmental Limitations-(lack of equipment, weather restraints, etc.). 88-Not Attempted due to Medical Conditions or Safety Concerns. Eating (QC): 6 Toileting Hygiene (QC): 4 (Per pt report, able to manage with increased time due to short/standard toilet.) Other Treatment Pt up in recliner, agreeable to OT Tx. OT provided further education on AE, including recommendation for director religious education, sock aide, tub transfer bench, and long handled sponge. OT answered pt's questions to pt's satisfaction. Pt indicates her daughter is in the process of obtaining these items. Pt reports no concerns with ability to perform ADLs, and indicates she is hoping to discharge today. Pt declined ADLs at this time, as she is waiting on doctor to meet with her about potential discharge and she doesn't want to miss dr. Post tx, pt up in recliner, call light in reach and all needs met. Education OT Patient Education: Correct positioning, Energy conservation, Modified ADL techniques, Progress toward Goal/Update tx plan, Purpose of tx/functional activities, Rehab process Teaching Recipient: Patient Teaching Methods: Discussion Response to Teaching: Verbalize Understanding OT Senior Living Goals Photographer Portrait Goals Time Frame: May 11, 2022 Toileting Hygiene (QC): 6 Shower/Bathe Self (QC): 4 Upper Body Dressing (QC): 6 Lower Body Dressing (QC): 6 On/Off Footwear (QC): 6 Additional Goals: 1-Demonstrate ADL Tasks, 2-Verbalize Understanding, 3- ImproveStrength/Gera 1=Demonstrate adherence to instructed precautions during ADL tasks. 2=Patient will verbalize/demonstrate understanding of assistive devices/modifica tions for ADL. 3=Patient will improve strength/tolerance for activity to enable patient to perform ADL's. OT Education/Plan Problem List/Assessment Assessment: Decreased Activ Tolerance, Decreased UE Strength, Impaired Funct Balance, Impaired I ADL's, Impaired Self-Care Skills Discharge Recommendations Plan/Recommendations: Continue POC Treatment Plan/Plan of Care Patient would benefit from OT for education, treatment and training to promote independence in ADL's, mobility, safety and/or upper extremity function for ADL's. Plan of Care: ADL Retraining, Functional Mobility, UE Funct Exercise/Act Treatment Duration: May 11, 2022 Frequency: 3 times per week (3-5x per week) Rehab Potential: Good Time/GCodes Start Time: 11:08 Stop Time: 11:18 Total Time Billed (hr/min): 10 Billed Treatment Time 1, ADL JOSH ZHOU OT May 04, 2022 11:39
--- NOTE | 2022-05-04 11:46 | Discharge Summary ---
Discharge Summary Hospital Course Hospital Course Date of Admission: May 02, 2022 at 06:00 Admission Diagnosis : Family Physician/Provider: Justin Mora MD Date of Discharge: 05/04/22 Discharge Diagnosis: [Left Hip Primary Osteoarthritis ] Hospital Course: [On 05/02/22, patient was admitted and underwent left total hip arthroplasty. Tolerated the procedure well and was admitted to the regular floor. On the night of surgery, did begin mechanical DVT prophylaxis. On POD #1, began to work with therapy and did well. Pain was controlled on oral pain medication, and chemical DVT prophylaxis was started. On POD #2, continued to make good progress with mobility and was transitioning positions independently and ambulating with walker in hallways; ready for discharge home with home health. ] Labs and Pending Lab Test: Laboratory Tests 05/04/22 06:00: Hemoglobin 9.8L, Hematocrit 30L Home Meds Active Reported Hydrocodone-Acetamin 7.5-325 (Hydrocodone/Acetaminophen) Unknown Strength Tablet Unknown Dose PO Vitamin D2 (Ergocalciferol (Vitamin D2)) 1,250 Mcg (14070 Unit) Capsule 1,250 Mcg PO WEEK Omeprazole 20 Mg Tablet.dr 20 Mg PO DAILY Gabapentin 400 Mg Capsule 400 Mg PO HS Gabapentin 100 Mg Capsule 100 Mg PO BID Pravastatin Sodium 80 Mg Tablet 80 Mg PO DAILY Assessment/Pt Instructions WBAT on left leg, use walker for assist, home health physical therapy for continued rehab, dry dressing daily, keep surgical site clean and dry. Discharge Instructions Discharge Diet: Regular Diet Discharge Physical Examination Vital Signs Vital Signs Date Time Temp Pulse Resp B/P (MAP) Pulse Ox O2 Delivery O2 Flow Rate FiO2 05/04/22 11:34 37.1 70 17 104/57 (73) 98 Room Air 05/02/22 11:45 2.00 Extremity: Other (Left Hip: Incision C/D/I, +DF of ankle, no s/s of DVT) Allergies: Coded Allergies: Penicillins (Verified Allergy, Unknown, HIVES, 04/19/22) aspirin (Verified Allergy, Unknown, NAUSEA, 04/19/22) nitrofurantoin (Verified Allergy, Unknown, 04/19/22) Discharge Summary Date of Admission May 02, 2022 at 06:00 Date of Discharge JAILYN MERCHANT MD May 04, 2022 11:46
[2022-05-04] MEDS ORDERED: HYDR-34 PO (11:49)
[2022-05-04] MEDS ORDERED: APIX2.5T PO (11:49)
--- NOTE | 2022-05-04 11:52 | D/C HH Face to Face Order ---
D/C Face to Face Orders Instructions for Patient Via Tika LAVEGO, Patient Instructions/FollowUp: WBAT on left leg with walker, posterior hip dislocation precautions, home physical therapy 2 weeks postop in office Physician to follow Patient: Chris Hernadez Discharge Diet for Home: No Restrictions Patient Data-Allergies,Ht & Wt Patient Allergies: Coded Allergies: Penicillins (Verified Allergy, Unknown, HIVES, 04/19/22) aspirin (Verified Allergy, Unknown, NAUSEA, 04/19/22) nitrofurantoin (Verified Allergy, Unknown, 04/19/22) Height (Feet): 5 Height (Inches): 1.00 Weight (Pounds): 159 Weight (Ounces): 1.0 Home Health Need/Face to Face Date of Face to Face: May 04, 2022 Clinical Findings: Muscle weakness, Pain with ambulation I have seen Pt bmzz-lm-oqmv: Yes Discharged To: Home Diagnosis/Conditions: Left Hip Primary Osteoarthritis s/p L THOM Patient is Homebound due to: Muscle weakness, Pain w/ambulation Homebound Status Due to the above stated illness, injury or surgical procedure (medical condition or diagnosis) and associated clinical findings, the patient is homebound because of his/her inability to leave home except with aid of a supportive device and/or person AND leaving the home requires a considerable and taxing effort or is medically contraindicated. Pt req the following assistanc: Walker Home Health Nursing Orders Home Health Services Order: Physical Therapy-Evaluate & Treat Home Health Infusion Therapy Line Start Date: May 02, 2022 Therapy Orders Therapy Orders: Physical Therapy Therapy Specific Orders: Gait training, Increase strength/endurance, Restore ROM Certify Stmt I certify that this patient is under my care and that I, a nurse practitioner or a physician; a recreational assistant working with me, had a face to face encounter that - meets the physician face to face encounter requirements with this patient as dated. CHRIS HERNADEZ MD May 04, 2022 11:52
[2022-05-04] MEDS: GABAPENTIN 100 MG (NEURONTIN) CAP PO SCH (13:25)
--- NOTE | 2022-05-04 15:57 | Physical Therapy Daily Note ---
PT Daily Note-Current Subjective Patient lying supine in bed upon PT arrival. Agreeable to treatment. Mental Status Patient Orientation: Person, Place, Time, Situation Transfers SCALE: Activities may be completed with or without assistive devices. 7-Xeapbxekmz-apsltwj completes the activity by him/herself with no assistance from a helper. 5-Set-up or Clean-up Assistance-helper sets up or cleans up; patient completes activity. [place] assists only prior to or following the activity. 4-Supervision or Touching Assistance-helper provides verbal cues and/or touching/steadying and/or contact guard assistance as patient completes activity. Assistance may be provided throughout the activity or intermittently. 3-Partial/Moderate Assistance-helper does LESS THAN HALF the effort. [place] lifts, holds or supports trunk or limbs, but provides less than half the effort. 2-Substantial/Maximal Assistance-helper does MORE THAN HALF the effort. [place] lifts or holds trunk or limbs and provides more than half the effort. 0-Ikyjhggxe-bbjlyw does ALL the effort. Patient does none of the effort to complete the activity. Or, the assistance of 2 or more helpers is required for the patient to complete the activity. If activity was not attempted, code reason: 7-Patient Refused. 9-Not Applicable-not attempted and the patient did not perform the activity before the current illness, exacerbation or injury. 10-Not Attempted due to Environmental Limitations-(lack of equipment, weather restraints, etc.). 88-Not Attempted due to Medical Conditions or Safety Concerns. Roll Left & Right (QC): 3 Sit to Lying (QC): 3 Lying to Sitting/Side of Bed(Q: 3 Sit to Stand (QC): 4 Chair/Wxh-ac-Qcavg Xfer(QC): 4 Weight Bearing Right Lower Extremity: Right Full Weight Bearing Left Lower Extremity: Left Weight Bearing/Tolerated Gait Training Does the Patient Walk?: Yes Distance: 120 Walk 10 feet (QC): 4 Walk 50 ft with 2 Turns(QC): 4 Gait Assistive Device: FWW Assessment Current Status: Fair Progress Patient performs all observed bed mobility and transfers with Min A and SBA. Patient ambulates 120 feet with FWW, with SBA and verbal cues for safety, progression, posture and balance. Patient in bed post treatment with all needs met, nursing notified, call light in hand and friend in the room. PT Planting Material Carrier Goals Mcfp Goals PT Planting Material Carrier Goals Time Frame: May 21, 2022 Roll Left & Right (QC): 6 Sit to Lying (QC): 6 Lying-Sitting on Side/Bed(QC): 6 Sit to Stand (QC): 6 Chair/Dhi-po-Yltzr Xfer(QC): 6 Toilet Transfer (QC): 6 Car Transfer (QC): 6 Walk 10 feet (QC): 6 Walk 50ft with 2 Turns (QC): 6 Walk 150 ft (QC): 6 PT Plan Treatment/Plan Treatment Plan: Continue Plan of Care Treatment Plan: Bed Mobility, Education, Functional Activity Gera, Functional Strength, Gait, Safety, Therapeutic Exercise, Transfers Treatment Duration: May 21, 2022 Frequency: 11 times per week Estimated Hrs Per Day: .5 hour per day Patient and/or Family Agrees t: Yes Safety Risks/Education Patient Education: Gait Training Teaching Recipient: Patient Teaching Methods: Demonstration, Discussion Response to Teaching: Verbalize Understanding, Return Demonstration Time/GCodes Time In: 1540 Time Out: 1550 Total Billed Treatment Time: 10 Total Billed Treatment Visit, BRIAN Lim PT May 04, 2022 15:57
[2022-05-04 16:24] VITALS: BP 104/57
[2022-05-08] MEDS ORDERED: VITAMIN D2 1.25 MG (50,000 UNITS) CAP PO SCH (06:30)
== END 2022-05-04 16:15 | disposition home health service (06) | DRG 470 ==
LOC: 4TH 06:00 → SURG 06:01 → 4TH 11:30
PROVIDERS: ADMIT Orthopaedic Surgery; ATTEND Orthopaedic Surgery
PROC: 0SRB04A Replacement of Left Hip Joint with Ceramic on Polyethylene Synthetic Substitute, Uncemented, Open Approach (ICD-10-PCS; principal; 2022-05-02 07:14)
DX: M16.12 Unilateral primary osteoarthritis, left hip (principal)
CPT/HCPCS: 36415; 72170; 85014; 85018; 86850; 86900; 86901

== ENCOUNTER → 2022-05-17 | Outpatient (CLI) | payer MEDICARE, OTHER ==
[~2022-05-17] MED LIST changes: +APIX2.5T PO; +HYDR-34 PO
== END ==
LOC: ORTHO 09:53
PROVIDERS: ATTEND Orthopaedic Surgery
DX: Z47.89 Encounter for other orthopedic aftercare (principal)

== ENCOUNTER → 2022-06-14 | Outpatient (CLI) | payer MEDICARE, OTHER ==
--- NOTE | 2022-06-14 10:28 | Diagnostic Imaging Report ---
INDICATION: FOLLOW UP ORTHOPEDIC ASSESSMENT USE CALIBRATION MARKER previous left hip replacement COMPARISON: 05/02/2022 FINDINGS: 2 radiographic views of the left hip were obtained. There are expected postsurgical changes of previous left hip total arthroplasty. There is appropriate anatomic alignment of the femoral component in relation to the acetabular component. Acetabular component appears well seated. The stem of the femoral component is located centrally in the medullary cavity. There is no periprosthetic fracture. No acute fracture or dislocation is identified. No unexpected radiopaque foreign bodies identified. IMPRESSION: Expected postsurgical changes of prior left total hip arthroplasty. No unexpected radiopaque foreign body identified. Dictated by: Dictated on workstation # [id number]
== END ==
LOC: ORTHO 10:00
PROVIDERS: ATTEND Orthopaedic Surgery
DX: Z47.89 Encounter for other orthopedic aftercare (principal); Z96.642 Presence of left artificial hip joint; Z98.890 Other specified postprocedural states
CPT/HCPCS: 73502

== ENCOUNTER 2022-07-05 08:51 | Outpatient (RCR) | payer MEDICARE, OTHER ==
[~2022-07-05] VITALS: Ht 154 cm; Wt 70.0 kg
[2022-07-05] MEDS ORDERED: CALC-308 PO (09:06)
[2022-07-05 09:39] VITALS: BP 142/69
[2022-07-05 09:43] LABS: BILIRUBIN,URINE NEGATIVE (NEGATIVE); CLARITY,URINE CLEAR; COLOR,URINE YELLOW; GLUCOSE, URINE (UA) NEGATIVE (NEGATIVE); KETONES,URINE NEGATIVE (NEGATIVE); LEUKOCYTE ESTERASE ,URINE 1+ (NEGATIVE); NITRITE,URINE NEGATIVE (NEGATIVE); PROTEIN,URINE NEGATIVE (NEGATIVE)
[2022-07-05 09:47] LABS: BASOPHILS % (AUTO) 1 % (0-10); EOSINOPHILS # (AUTO) 0.2 10^3/uL (0.0-0.3); EOSINOPHILS % (AUTO) 3 % (0-10); HEMATOCRIT 41 % (35-52); HEMOGLOBIN 13.6 g/dL (11.5-16.0); LYMPHOCYTES # (AUTO) 2.3 10^3/uL (1.0-4.0); LYMPHOCYTES % (AUTO) 39 % (12-44); MEAN CORPUSCULAR HEMOGLOBIN 33 pg (25-34); MEAN CORPUSCULAR HGB CONC 34 g/dL (32-36); MEAN CORPUSCULAR VOLUME 98 fL (80-99); MEAN PLATELET VOLUME 8.8 fL (9.0-12.2); MONOCYTES # (AUTO) 0.4 10^3/uL (0.0-1.0); MONOCYTES % (AUTO) 7 % (0-12); NEUTROPHILS # (AUTO) 3.1 10^3/uL (1.8-7.8); NEUTROPHILS % (AUTO) 51 % (42-75); PLATELET COUNT 246 10^3/uL (130-400)
[2022-07-05 09:53] LABS: BACTERIA,URINE NEGATIVE /HPF; SQUAMOUS EPITHELIAL CELL,UR RARE /HPF; WBC,URINE RARE /HPF
[2022-07-05 10:03] LABS: POTASSIUM 3.8 MMOL/L (3.6-5.0)
[2022-07-05 10:04] LABS: CALCIUM 8.9 MG/DL (8.5-10.1)
[2022-07-05 10:08] LABS: CREATININE SERUM 0.85 MG/DL (0.60-1.30)
[2022-07-25] MEDS ORDERED: CALC-140 PO (14:02)
[2022-07-27] MEDS ORDERED: HYDR-34 PO (12:00)
== END 2022-07-27 | disposition home or self-care (01) ==
LOC: PREOP 08:51 → EDSTATUS 09:00
PROVIDERS: ATTEND Orthopaedic Surgery
DX: Z01.818 Encounter for other preprocedural examination (principal); M16.11 Unilateral primary osteoarthritis, right hip
CPT/HCPCS: 36415; 80048; 81000; 85025; 87081

== ENCOUNTER 2022-07-25 06:07 | Observation (INO) | payer MEDICARE, OTHER ==
[2022-07-25] VITALS (12 sets, daily range): BP systolic 107–174; BP diastolic 68–98
[~2022-07-25] VITALS: Ht 154 cm; Wt 70.0 kg
[~2022-07-25 06:07] MED LIST changes: +CALC-308 PO
[2022-07-25] MEDS ORDERED: CLINDAMYCIN 600 MG/50 ML IVPB 50 ML IV ONE (06:15)
[2022-07-25] MEDS: LACTATED RINGERS 1,000 ML IV PRN ×2 (06:40→07:59)
[2022-07-25] MEDS ORDERED: proPOfol 200 MG/20 ML (DIPRIVAN) VIAL IV ONE (07:02)
[2022-07-25] MEDS ORDERED: fentaNYL INJ 100 MCG/2 ML AMP ONE (07:02)
[2022-07-25] MEDS ORDERED: ONDANSETRON 4 MG/2 ML (SDV) Z0FRAN ONE (07:02)
[2022-07-25] MEDS ORDERED: LIDOCAINE PF 2% 5 ML (XYLOCAINE) VIAL ONE (07:02)
[2022-07-25] MEDS ORDERED: MIDAZOLAM 2 MG/2 ML (VERSED) VIAL ONE (07:02)
[2022-07-25] MEDS ORDERED: GLYCOPYRROLATE 0.2 MG/ML (ROBINUL) 2 ML VIAL ONE ×2 (07:02→08:11)
[2022-07-25] MEDS ORDERED: NEOSTIGMINE (BLOXIVERZ ) 1 MG/1ML 10 ML VIAL ONE (07:14)
[2022-07-25] MEDS ORDERED: ROCURONIUM 50 MG/5 ML (ZEMURON) VIAL IV ONE (07:14)
--- NOTE | 2022-07-25 07:14 | History & Physical Orthopedic ---
History and Physical Subjective Date of Exam 07/25/22 Chief Complaint Right Hip Pain HPI/Events since last exam Has had ongoing right hip pain. Localizes pain in groin. Has difficulty with ambulation, difficulty with transitioning positions. Has successfully underwent left THOM and now would like to proceed with right THOM. Medical, Surgical History Left Total Hip Arthroplasty section Spine Surgery Osteoporosis GERD Hypercholesterolemia Social History Former smoker Family History Noncontributory Review of Systems Negative Allergies: Coded Allergies: Penicillins (Verified Allergy, Unknown, HIVES, 07/05/22) aspirin (Verified Allergy, Unknown, NAUSEA, 07/05/22) nitrofurantoin (Verified Allergy, Unknown, 07/05/22) Home Meds Reported Medications Calcium Carbonate (Calcium) Unknown Strength Tab.chew, PO, TAB 07/05/22 Ergocalciferol (Vitamin D2) (Vitamin D2) 1,250 Mcg (61020 Unit) Capsule, 1250 MCG PO WEEK, CAP 04/19/22 Omeprazole (Omeprazole) 20 Mg Tablet.dr, 20 MG PO DAILY, TAB 04/19/22 Gabapentin (Gabapentin) 400 Mg Capsule, 400 MG PO HS, CAP 04/19/22 Gabapentin (Gabapentin) 100 Mg Capsule, 100 MG PO BID for Neuropathic pain, CAP 04/19/22 Pravastatin Sodium (Pravastatin Sodium) 80 Mg Tablet, 80 MG PO DAILY, TAB 02/16/16 Objective Exam Constitutional: [Alert and Oriented x3] HEENT: [AT/NC] Cardiovascular: [S1, S2 present, peripheral pulses palpable] Respiratory: [Symmetric chest expansion, no labored breathing] Gastrointestinal: [Soft, NT] Extremities: [Right Hip: leg lengths grossly equal, stiff with rotational motion, Stinchfield's positive] Neurologic: [Sensation grossly intact to light touch] Assessment and Plan Assessment Right Hip Primary Osteoarthritis Problem List Right Hip Primary Osteoarthritis Plan Right Total Hip Arthroplasty The risks, complications, and alternatives as well as potential benefits of total hip arthoplasty were discussed in detail. This included hemorrhage which may necessitate transfusion, deep venous thromobosis with pulmonary embolism requiring anticoagulation postoperatively, infection requiring further surgery including potential component removal and debridement potentially necessitating multiple procedures. Also reviewed, were problems which may arise from the components including failure due to loosening and/or wear, osteolysis, periprosthetic fracture, dislocation, and leg length discrepancy. With regards to leg length discrepancy, I discussed the considerations with regards to equalization of leg length versus stability and satisfactory range of motion. Restriction of activity was also discussed. We also discussed the possibility of decompensation of preexisting medical conditions. No guarantees were implied or stated. The patient verbalizes understanding, accepts the risks, and consents to the procedure. Final Diagonsis Right Hip Primary Osteoarthritis Level of the visit: Level 3 (preop global) JAILYN MERCHANT MD Jul 25, 2022 07:14
[2022-07-25] MEDS ORDERED: TRANEXAMIC ACID 3,000 MG/150 ML NS IRRIGATION IR ONE ×2 (08:00)
[2022-07-25] MEDS ORDERED: ROPIVACAINE 5MG/ML 30ML VIAL ONE (09:20)
--- NOTE | 2022-07-25 09:48 | Operative Report - Ortho ---
Operative Report Surgeon (s)/Manager Heart Failure (s) Surgeon JAILYN MERCHANT MD Manager Heart Failure n/a Pre-Operative Diagnosis Right Hip Primary Osteoarthritis Post-Operative Diagnosis same Operative Report Date of Procedure: Jul 25, 2022 Name of Procedure Performed: Right Total Hip Arthroplasty Description & Findings After obtaining informed consent and marking the patient in the preoperative holding area, the patient did receive antibiotics and was taken to the operating room. General anesthesia was induced and patient was positioned in the lateral decubitus position with the right side up. Right lower extremity was prepped and draped in the usual sterile fashion. Surgical timeout was taken. Posterolateral approach was utilized. Capsule and external rotators were taken down in one layer. Hip was dislocated without difficulty. Femoral neck osteotomy was performed and femoral head was removed. Acetabulum was exposed. Labrum and soft tissue was removed from the acetabulum. Sequential reaming was began beginning with a 43 mm reamer and reaming to a 50 mm. 50 mm trial was placed and had good fit. Trial was removed and the acetabulum was lavaged with normal saline; a 50 mm cup was impacted into place and had excellent press fit. A trial liner was put into place. Attention was turned to the femoral side, a [place] cutter osteotome was used to removed bone near the greater trochanter. Canal finder was inserted followed by the lateralizing reamer. Sequential broaching was began with a 0 and was broached to a 4. Trial 127 degree neck and -5 mm head were put into place. Leg lengths were grossly equal; the hip was stable in position of sleep, and stable in flexion and internal rotation. This was accepted. Hip was dislocated. Acetabulum was exposed. Trial liner was removed and a polyethylene liner was locked into place; freer was used to check the locking mechanism. Attention was turned back to the femur, broach was removed and the canal was irrigated. A si ze 4 Accolade II was impacted into place and set at the same level as the broach. A -5 mm ceramic head was impacted onto the shaw taper of the stem. Hip was once again located and found to have grossly equal leg lengths with stability in position of sleep as well as flexion and internal rotation. Tranexamic acid was applied for hemostasis. Capsular repair was performed using #2 FiberWire. The fascial layer was closed with #2 StrataFix. The subcutaneous layer was closed with 2-0 Vicryl. Skin was closed with a running, subcuticular V-loc. Wound was dressed with steri-strips, xeroform, 4x4s, ABD, and tape. Patient was placed in abduction pillow and transferred to his hospital bed without difficulty and was stable to the recovery room. Anesthesia Type General plus regional Estimated Blood Loss 250 mL Specimen(s) collected/removed None JAILYN MERCHATN MD Jul 25, 2022 09:48
[2022-07-25] MEDS ORDERED: morphine INJ 4 MG/ML 1 ML (VIAL/SYRINGE) IVP PRN (10:00)
[2022-07-25] MEDS ORDERED: ACETAMINOPHEN 500 MG TAB (TYLENOL) PO PRN (10:00)
[2022-07-25] MEDS ORDERED: morphine INJ 10 MG/ML 1ML (SYR OR VIAL) IVP ONE (10:00)
[2022-07-25] MEDS ORDERED: HYDROmorphone 2 MG/ML VIAL (DILAUDID) IV ONE (10:00)
[2022-07-25] MEDS ORDERED: ONDANSETRON 4 MG/2 ML (SDV) Z0FRAN IV PRN (10:00)
[2022-07-25] MEDS ORDERED: BISACODYL 5 MG (DULCOLAX) TABLET PO PRN (10:00)
[2022-07-25] MEDS ORDERED: ONDANSETRON 4 MG/2 ML (SDV) Z0FRAN IVP PRN (10:00)
[2022-07-25] MEDS ORDERED: MILK OF MAGNESIA 400 MG/5 ML 30 ML UDC PO PRN (10:00)
[2022-07-25] MEDS ORDERED: SEVOFLURANE (ULTANE) 15 ML INHAL SOLN ONE (10:11)
[2022-07-25] MEDS: NS IV 1000 ML 1,000 ML IV SCH ×2 (12:21→22:56)
--- NOTE | 2022-07-25 13:27 | Physical Therapy Evaluation ---
PT Evaluation-General Medical Diagnosis Admission Date July 25, 2022 Medical Diagnosis: right hip OA Onset Date: Jul 25, 2022 Therapy Diagnosis Therapy Diagnosis: debility/weakness Height/Weight Height (Feet): 5 Height (Inches): 1.00 Weight (Pounds): 159 Weight (Ounces): 1.0 Precautions Precautions/Isolations: Standard Precautions Weight Bear Status Right Lower Extremity: Right Weight Bearing/Tolerated Left Lower Extremity: Left Full Weight Bearing right THR precautions Referral Physician: Maricarmen Reason for Referral: Evaluation/Treatment Medical History Pertinent Medical History: OA Additional Medical History Left THR Current History s/p elective right THR Reviewed History: Yes Social History Home: Single Level Current Living Status: Other Family Entry Into Home: Stairs With Railing PT Steps Into Home: 4 Prior Prior Level of Function SCALE: Activities may be completed with or without assistive devices. 4-Rtfwpxlgvx-faxfppk completes the activity by him/herself with no assistance from a helper. 5-Set-up or Clean-up Assistance-helper sets up or cleans up; patient completes activity. [place] assists only prior to or following the activity. 4-Supervision or Touching Assistance-helper provides verbal cues and/or touching/steadying and/or contact guard assistance as patient completes ac tivity. Assistance may be provided throughout the activity or intermittently. 3-Partial/Moderate Assistance-helper does LESS THAN HALF the effort. [place] lifts, holds or supports trunk or limbs, but provides less than half the effort. 2-Substantial/Maximal Assistance-helper does MORE THAN HALF the effort. [place] lifts or holds trunk or limbs and provides more than half the effort. 0-Uqagselrt-lplaki does ALL the effort. Patient does none of the effort to complete the activity. Or, the assistance of 2 or more helpers is required for the patient to complete the activity. If activity was not attempted, code reason: 7-Patient Refused. 9-Not Applicable-not attempted and the patient did not perform the activity before the current illness, exacerbation or injury. 10-Not Attempted due to Environmental Limitations-(lack of equipment, weather restraints, etc.). 88-Not Attempted due to Medical Conditions or Safety Concerns. Bed Mobility: 6 Transfers (B,C,W/C): 6 Gait: 6 Stairs: 6 Indoor Mobility (Ambulation): Independent Stairs: Independent Prior Devices Use: None, Walker (after surgery) PT Evaluation-Current Subjective Patient agrees to PT. Pain Numeric Pain Scale: 8 Location: Right Location Body Site: Hip Pain Description: Acute Objective Patient Orientation: Normal For Age Attachments: Lu Catheter, IV ROM/Strength ROM Lower Extremities right LE hip precautions/left LE WFL Strength Lower Extremities right LE 3-/5 grossly/left LE 4-/5 grossly Integumentary/Posture Integumentary refer to nursing notes Bowel Incontinence: No Bladder Incontinence: Lu Cath Posture WFL Neuromuscular (Tone, Coordination, Reflexes) grossly intact Sensory Vision: Functional Hearing: Functional Sensation Right Lower Extremit: Intact Sensation Left Lower Extremity: Intact Transfers Roll Left to Right (QC): 3 Sit to Lying (QC): 3 Lying to Sitting/Side of Bed(Q: 3 Sit to Stand (QC): 4 Gait Mode of Locomotion: Walk Anticipated Mode of Locomotion: Walk Walk 10 feet (QC): 4 Walk 50 ft with 2 Turns(QC): 88 Walk 150 ft (QC): 88 Distance: 10' Gait Assistive Device: FWW Comments/Gait Description slow, steady gait sequence Balance Sitting Static: Normal Sitting Dynamic: Normal Standing Static: Good Standing Dynamic: Good Assessment/Needs 67 y.o. female, will benefit from skilled PT to address functional strength and mobility to improve current LOF to safely return to home at maximum LOF. Patient returned to bed with abduction pillow in place. Rehab Potential: Good PT White Lead Grinder Goals White Lead Grinder Goals PT White Lead Grinder Goals Time Frame: Aug 06, 2022 Roll Left & Right (QC): 6 Sit to Lying (QC): 6 Lying-Sitting on Side/Bed(QC): 6 Sit to Stand (QC): 6 Chair/Evo-ke-Jbhxl Xfer(QC): 6 Toilet Transfer (QC): 6 Walk 10 feet (QC): 6 Walk 50ft with 2 Turns (QC): 6 Walk 150 ft (QC): 6 1 Step (curb) (QC): 6 4 Steps (QC): 6 PT Plan Problem List Problem List: Activity Tolerance, Functional Strength, Safety, Balance, Gait, Transfer, Bed Mobility Treatment/Plan Treatment Plan: Continue Plan of Care Treatment Plan: Bed Mobility, Education, Functional Activity Gera, Functional Strength, Gait, Safety, Therapeutic Exercise, Transfers Treatment Duration: Aug 06, 2022 Frequency: 11 times per week Estimated Hrs Per Day: .5 hour per day Patient and/or Family Agrees t: Yes Time/GCodes Time In: 1255 Time Out: 1315 Total Billed Treatment Time: 20 Total Billed Treatment 1 visit EVMod 20 min WU ESPINOZA PT Jul 25, 2022 13:27
--- NOTE | 2022-07-25 13:28 | Diagnostic Imaging Report ---
Indication: Postop right hip pain. Comparison 05/02/2022. FINDINGS: Total arthroplasty of both hips are noted. The components are in good alignment. Pelvis is intact. No fractures are seen. IMPRESSION: Satisfactory appearing total arthroplasty of both hips. Dictated by: Dictated on workstation # [id number]
[2022-07-25] MEDS ORDERED: CALC-140 PO (14:02)
[2022-07-25] MEDS: GABAPENTIN 100 MG (NEURONTIN) CAP PO SCH (15:47)
[2022-07-25] MEDS: CLINDAMYCIN 600 MG/50 ML IVPB 50 ML IV SCH ×2 (15:47→22:56)
[2022-07-25] MEDS: HYDROcodone/APAP 7.5 MG/325 MG (LORTAB, LORCET PLUS) TABLET PO PRN ×2 (15:48→20:20)
[2022-07-25] MEDS: CELECOXIB 100 MG (CeleBREX) CAP PO SCH (18:16)
[2022-07-25] MEDS: GABAPENTIN 400 MG (NEURONTIN) CAP PO SCH (20:20)
[2022-07-25] MEDS: DOCUSATE SODIUM 100 MG (COLACE) CAP PO SCH (20:21)
[2022-07-26] VITALS (7 sets, daily range): BP systolic 100–140; BP diastolic 56–69
[2022-07-26] MEDS: HYDROcodone/APAP 7.5 MG/325 MG (LORTAB, LORCET PLUS) TABLET PO PRN ×4 (00:12→23:33)
[2022-07-26 05:43] LABS: HEMOGLOBIN 10.6 g/dL (11.5-16.0)
[2022-07-26] MEDS: MULTIVIT W/MINERALS TAB (THERAGRAN M) PO SCH (06:33)
[2022-07-26] MEDS: NS IV 1000 ML 1,000 ML IV SCH (08:06)
--- NOTE | 2022-07-26 08:24 | Progress Note - Ortho ---
Progress Note Subjective Date of Exam 07/26/22 Chief Complaint POD #1 R THOM HPI/Events since last exam doing well, has been up with therapy, pain controlled Review of Systems - Allergies: Coded Allergies: Penicillins (Verified Allergy, Unknown, HIVES, 07/05/22) aspirin (Verified Allergy, Unknown, NAUSEA, 07/05/22) nitrofurantoin (Verified Allergy, Unknown, 07/05/22) Home Meds Reported Medications Calcium Carbonate/Vitamin D3 (Calcium + Vitamin D Tablet) 600 Mg Calcium-5 Mcg (200 Unit) Tablet, 1 EACH PO DAILY, TAB 07/25/22 Ergocalciferol (Vitamin D2) (Vitamin D2) 1,250 Mcg (23675 Unit) Capsule, 1250 MCG PO TUES, CAP 04/19/22 Omeprazole (Omeprazole) 20 Mg Tablet.dr, 20 MG PO DAILY, TAB LAST FILLED 05-19-2022 # DAY SUPPLY 04/19/22 Gabapentin (Gabapentin) 400 Mg Capsule, 400 MG PO HS, CAP 04/19/22 Gabapentin (Gabapentin) 100 Mg Capsule, 100 MG PO 1500, CAP 04/19/22 Pravastatin Sodium (Pravastatin Sodium) 80 Mg Tablet, 80 MG PO HS, TAB 02/16/16 Discontinued Reported Medications Calcium Carbonate (Calcium) Unknown Strength Tab.chew, PO, TAB 07/05/22 Objective Exam R Hip: Incision C/D/I, +DF, no s/s of DVT Vital Signs Vital Signs Date Time Temp Pulse Resp B/P (MAP) Pulse Ox O2 Delivery O2 Flow Rate FiO2 07/26/22 07:30 Room Air 0.00 07/26/22 07:27 36.2 58 18 100/61 (74) 95 Room Air 07/26/22 04:18 36.2 70 18 129/68 (88) 97 Room Air 07/26/22 00:13 36.7 65 18 105/69 (81) 95 Room Air 07/25/22 20:30 Room Air 07/25/22 19:25 36.1 64 18 132/68 (89) 96 Room Air 07/25/22 15:30 35.9 63 20 121/71 (88) 98 Room Air 07/25/22 11:59 35.8 56 17 122/79 (93) 93 Room Air 07/25/22 10:40 Room Air 07/25/22 10:40 Room Air 8/29/22 10:40 36.5 18 141/75 (97) 96 Room Air 07/25/22 10:32 Room Air 07/25/22 10:30 18 144/75 (98) 98 Room Air 07/25/22 10:26 Room Air 07/25/22 10:24 OxyMask 3.00 07/25/22 10:20 OxyMask 6.00 07/25/22 10:20 18 144/73 (96) 100 OxyMask 3.00 07/25/22 10:10 18 140/98 (112) 100 OxyMask 6.00 07/25/22 10:10 OxyMask 6.00 07/25/22 10:00 18 161/81 (107) 100 OxyMask 6.00 07/25/22 10:00 OxyMask 6.00 07/25/22 09:50 18 162/91 (114) 100 OxyMask 6.00 07/25/22 09:47 36.1 16 174/84 (114) 100 OxyMask 6.00 07/25/22 09:47 OxyMask 6.00 I & O 07/26/22 07:00 Intake Total 4615 ml Output Total 1545 ml Balance 3070 ml Lab Results Laboratory Tests 07/25/22 11:31: Glucometer 137H 07/26/22 05:28: Hemoglobin 10.6L, Hematocrit 31L Microbiology 07/25/22 MRSA Screen - Final, Complete MRSA not isolated Imaging Post Op AP pelvis with components in good position without complication Assessment and Plan Assessment Right Hip Primary Osteoarthritis s/p Total Hip Arthroplasty Problem List Right Hip Primary Osteoarthritis s/p Total Hip Arthroplasty Plan PT/OT DVT Prophylaxis Home with Home Health Tomorrow Final Diagonsis Right Hip Primary Osteoarthritis s/p Total Hip Arthroplasty Level of the visit: Level 3 (global postop) JAILYN MERCHANT MD Jul 26, 2022 08:24
[2022-07-26] MEDS: DOCUSATE SODIUM 100 MG (COLACE) CAP PO SCH ×2 (08:28→20:03)
[2022-07-26] MEDS: CELECOXIB 100 MG (CeleBREX) CAP PO SCH ×2 (08:28→17:06)
[2022-07-26] MEDS: PANTOPRAZOLE 20 MG TABLET (PROTONIX) PO SCH (08:28)
[2022-07-26] MEDS: APIXABAN 2.5 MG (ELIQUIS) TABLET PO SCH ×2 (08:28→20:03)
[2022-07-26] MEDS ORDERED: NON-FORMULARY MEDICATION 1 EA EA (Pravastatin Sodium 80 MG) PO SCH (09:00)
--- NOTE | 2022-07-26 09:46 | Physical Therapy Daily Note ---
PT Daily Note-Current Subjective Patient agrees to PT. Dr. Hernadez present. Mental Status Patient Orientation: Normal For Age Transfers SCALE: Activities may be completed with or without assistive devices. 0-Myxyahthak-dcuuryt completes the activity by him/herself with no assistance from a helper. 5-Set-up or Clean-up Assistance-helper sets up or cleans up; patient completes activity. [place] assists only prior to or following the activity. 4-Supervision or Touching Assistance-helper provides verbal cues and/or touching/steadying and/or contact guard assistance as patient completes activity. Assistance may be provided throughout the activity or intermittently. 3-Partial/Moderate Assistance-helper does LESS THAN HALF the effort. [place] lifts, holds or supports trunk or limbs, but provides less than half the effort. 2-Substantial/Maximal Assistance-helper does MORE THAN HALF the effort. [place] lifts or holds trunk or limbs and provides more than half the effort. 8-Clnnejugb-ndzvfs does ALL the effort. Patient does none of the effort to complete the activity. Or, the assistance of 2 or more helpers is required for the patient to complete the activity. If activity was not attempted, code reason: 7-Patient Refused. 9-Not Applicable-not attempted and the patient did not perform the activity before the current illness, exacerbation or injury. 10-Not Attempted due to Environmental Limitations-(lack of equipment, weather restraints, etc.). 88-Not Attempted due to Medical Conditions or Safety Concerns. Lying to Sitting/Side of Bed(Q: 6 Sit to Stand (QC): 6 Chair/Vkx-ae-Ksagw Xfer(QC): 6 Toilet Transfer (QC): 6 Weight Bearing Right Lower Extremity: Right Weight Bearing/Tolerated Left Lower Extremity: Left Full Weight Bearing right THR precautions Gait Training Distance: 250' Walk 10 feet (QC): 6 Walk 50 ft with 2 Turns(QC): 6 Walk 150 ft (QC): 6 Gait Assistive Device: FWW slow, reciprocal pattern Exercises Supine Ex: Ankle pumps, Quad Set, Heel Slides Supine Reps: 12 Seated Therapy Exercises: Long arc quads Seated Reps: 15 Assessment Patient very motivated with progress and is safe to be up independently in room and hallway. PT to visit with patient tomorrow a.m. prior to dismissal. PT to see patient x 1 on this date. Patient agrees and RN notified. PT [facility] Goals Rn Wellness Goals PT Chcf Goals Time Frame: Aug 06, 2022 Roll Left & Right (QC): 6 Sit to Lying (QC): 6 Lying-Sitting on Side/Bed(QC): 6 Sit to Stand (QC): 6 Chair/Lhw-we-Rtmta Xfer(QC): 6 Toilet Transfer (QC): 6 Walk 10 feet (QC): 6 Walk 50ft with 2 Turns (QC): 6 Walk 150 ft (QC): 6 1 Step (curb) (QC): 6 4 Steps (QC): 6 PT Plan Treatment/Plan Treatment Plan: Continue Plan of Care, Modify Plan, see comments Treatment Plan: Bed Mobility, Education, Functional Activity Gera, Functional Strength, Gait, Safety, Therapeutic Exercise, Transfers Treatment Duration: Aug 06, 2022 Frequency: 6 times per week Estimated Hrs Per Day: .5 hour per day Patient and/or Family Agrees t: Yes Time/GCodes Time In: 800 Time Out: 824 Total Billed Treatment Time: 24 Total Billed Treatment 1 visit EX 10 min GT 14 min WU ESPINOZA PT Jul 26, 2022 09:46
--- NOTE | 2022-07-26 14:19 | Occupational Therapy Eval ---
OT Evaluation-General/PLF Medical Diagnosis Admission Date Medical Diagnosis: right hip OA Onset Date: Jul 25, 2022 Therapy Diagnosis Therapy Diagnosis: n/a Height/Weight Height (Feet): 5 Height (Inches): 1.00 Weight (Pounds): 159 Weight (Ounces): 1.0 Precautions Precautions/Isolations: Standard Precautions Referral Physician: Maricarmen Referral Reason: Evaluation/Treatment Medical History Pertinent Medical History: OA Additional Medical History L THOM Current History s/p R THOM Social History Home: Single Level Current Living Status: Other Family (granddaughter) Entry Into Home: Stairs With Railing Steps Into Home: 4 ADL-Prior Level of Function SCALE: Activities may be completed with or without assistive devices. 1-Hoabamxlgq-iwklfvv completes the activity by him/herself with no assistance from a helper. 5-Set-up or Clean-up Assistance-helper sets up or cleans up; patient completes activity. [place] assists only prior to or following the activity. 4-Supervision or Touching Assistance-helper provides verbal cues and/or touching/steadying and/or contact guard assistance as patient completes activity. Assistance may be provided throughout the activity or intermittently. 3-Partial/Moderate Assistance-helper does LESS THAN HALF the effort. [place] lifts, holds or supports trunk or limbs, but provides less than half the effort. 2-Substantial/Maximal Assistance-helper does MORE THAN HALF the effort. [place] lifts or holds trunk or limbs and provides more than half the effort. 3-Ebwdwbptu-badqmg does ALL the effort. Patient does none of the effort to complete the activity. Or, the assistance of 2 or more helpers is required for the patient to complete the activity. If activity was not attempted, code reason: 7-Patient Refused. 9-Not Applicable-not attempted and the patient did not perform the activity before the current illness, exacerbation or injury. 10-Not Attempted due to Environmental Limitations-(lack of equipment, weather restraints, etc.). 88-Not Attempted due to Medical Conditions or Safety Concerns. ADL PLOF Comments Pt reports IND with ADLS and functional mobility at [facility], no AD. She has a wa lker from the hip replacement on the other hip, she owns a bilingual inside sales representative. After her last surgery, she got a sock aide, but she didn't like it and so her granddaughter would assist her with socks if needed, but pt doesn't typically wear socks. She has a tub/shower, no SC. Self Care: Independent Functional Cognition: Independent DME/Equipment: Tub/Shower OT Current Status Subjective Pt in bed, agreeable to OT Tx. Mental Status/Objective Patient Orientation: Person, Place, Time, Situation Current Upper Extremity ROM WFL Upper Extremity Strength WFL ADL-Treatment Eating (QC): 6 On/Off Footwear (QC): 4 (Min VCs for sock aide. ) Toileting Hygiene (QC): 6 Other Treatments Pt in bed, agreeable to OT Tx. Pt transferred supine to sit EOB, independently. Pt able to use bilingual inside sales representative to doff socks independently, but required verbal cues for using sock aide. Pt doesn't typically wear socks at home, and if she does she plans to have her granddaughter help her with it. Pt reports no concerns with using a bilingual inside sales representative to complete LE dressing, she recalls how to use it after her last hip replacement. OT informed pt to don RLE first and doff RLE last into LB clothing, she verbalized understanding. Pt reports she is up ad janae in her room, completing toileting with independence. Pt able to recall 3/3 hip precautions throughout tx. OT informed pt about benefits of tub transfer bench, sock aide, and long handled sponge. Pt reports no concerns with ADLs and feels like she will be able to manage at home. Pt transferred supine independently with increased time. Post tx, pt in bed, call light in reach and all needs met. Education OT Patient Education: Correct positioning, Energy conservation, Modified ADL techniques, Progress toward Goal/Update tx plan, Purpose of tx/functional activities, Rehab process Teaching Recipient: Patient Teaching Methods: Discussion Response to Teaching: Verbalize Understanding OT Instantizer Operator Goals Instantizer Operator Goals 1=Demonstrate adherence to instructed precautions during ADL tasks. 2=Patient will verbalize/demonstrate understanding of assistive devices/modifications for ADL. 3=Patient will improve strength/tolerance for activity to enable patient to perform ADL's. OT Education/Plan Problem List/Assessment Assessment: No Skilled OT Needs ID'd Pt reports no concerns with her ability to complete ADLs at discharge, she lives with her granddaughter who can assist if needed. Pt is independent with toileting, doffing socks, and has no concerns with other ADLS. Pt requests to d/c from OT at this time, pt informed to notify nurse if concerns arise. Discharge Recommendations Plan/Recommendations: Continue POC Treatment Plan/Plan of Care Patient would benefit from OT for education, treatment and training to promote independence in ADL's, mobility, safety and/or upper extremity function for ADL's. Plan of Care: ADL Retraining, Functional Mobility Treatment Duration: Jul 26, 2022 Frequency: 1 time per week (eval only) Rehab Potential: Good Time/GCodes Start Time: 13:07 Stop Time: 13:34 Total Time Billed (hr/min): 27 Billed Treatment Time 1, EVL (10'), ADL (17') JOSH ZHOU OT Jul 26, 2022 14:19
[2022-07-26] MEDS: GABAPENTIN 100 MG (NEURONTIN) CAP PO SCH (14:31)
[2022-07-26] MEDS: GABAPENTIN 400 MG (NEURONTIN) CAP PO SCH (20:03)
[2022-07-27] MEDS: HYDROcodone/APAP 7.5 MG/325 MG (LORTAB, LORCET PLUS) TABLET PO PRN ×2 (04:00→08:07)
[2022-07-27 04:01] VITALS: BP 114/51
[2022-07-27 05:36] LABS: HEMOGLOBIN 9.7 g/dL (11.5-16.0)
[2022-07-27] MEDS: MULTIVIT W/MINERALS TAB (THERAGRAN M) PO SCH (06:14)
[2022-07-27] MEDS: CELECOXIB 100 MG (CeleBREX) CAP PO SCH (08:07)
[2022-07-27] MEDS: PANTOPRAZOLE 20 MG TABLET (PROTONIX) PO SCH (08:07)
[2022-07-27] MEDS: DOCUSATE SODIUM 100 MG (COLACE) CAP PO SCH (08:07)
[2022-07-27] MEDS: APIXABAN 2.5 MG (ELIQUIS) TABLET PO SCH (08:07)
[2022-07-27 08:26] VITALS: BP 96/60
[2022-07-27 08:45] VITALS: BP 119/51
--- NOTE | 2022-07-27 09:04 | Physical Therapy Daily Note ---
PT Daily Note-Current Subjective Patient in bed pre tx, agrees to PT, has 3/10 pain in right hip. Patient states she is woozy from pain meds and isn't sure if she can ambulate very well. Appearance Patient in restroom post tx with nurse call, encouraged to call nurse when done to get her back to bed. Mental Status Patient Orientation: Person, Place, Situation Transfers SCALE: Activities may be completed with or without assistive devices. 4-Xknpymhouh-gcjxpfk completes the activity by him/herself with no assistance from a helper. 5-Set-up or Clean-up Assistance-helper sets up or cleans up; patient completes activity. [place] assists only prior to or following the activity. 4-Supervision or Touching Assistance-helper provides verbal cues and/or touching/steadying and/or contact guard assistance as patient completes activity. Assistance may be provided throughout the activity or intermittently. 3-Partial/Moderate Assistance-helper does LESS THAN HALF the effort. [place] lifts, holds or supports trunk or limbs, but provides less than half the effort. 2-Substantial/Maximal Assistance-helper does MORE THAN HALF the effort. [place] lifts or holds trunk or limbs and provides more than half the effort. 3-Dfaonsdyz-zmythe does ALL the effort. Patient does none of the effort to complete the activity. Or, the assistance of 2 or more helpers is required for the patient to complete the activity. If activity was not attempted, code reason: 7-Patient Refused. 9-Not Applicable-not attempted and the patient did not perform the activity before the current illness, exacerbation or injury. 10-Not Attempted due to Environmental Limitations-(lack of equipment, weather restraints, etc.). 88-Not Attempted due to Medical Conditions or Safety Concerns. Roll Left & Right (QC): 6 Lying to Sitting/Side of Bed(Q: 6 Sit to Stand (QC): 4 Chair/Jco-rf-Xqmnk Xfer(QC): 4 SBA for sit to stand and transfers Weight Bearing Right Lower Extremity: Right Weight Bearing/Tolerated Left Lower Extremity: Left Full Weight Bearing right THR precautions Gait Training Distance: 300' Walk 10 feet (QC): 4 Walk 50 ft with 2 Turns(QC): 4 Walk 150 ft (QC): 4 Gait Persons Needed: 1 Gait Assistive Device: FWW SBA, slow but steady ambulation Treatments bed mobility and transfers, ambulation Assessment Current Status: Fair Progress patient needed to use restroom after ambulating, patient would be independent with ambulation if she wasn't woozy from her pain meds. PT Groundskeeper Goals Groundskeeper Goals PT Fpc Goals Time Frame: Aug 06, 2022 Roll Left & Right (QC): 6 Sit to Lying (QC): 6 Lying-Sitting on Side/Bed(QC): 6 Sit to Stand (QC): 6 Chair/Mcd-gv-Kcqys Xfer(QC): 6 Toilet Transfer (QC): 6 Walk 10 feet (QC): 6 Walk 50ft with 2 Turns (QC): 6 Walk 150 ft (QC): 6 1 Step (curb) (QC): 6 4 Steps (QC): 6 PT Plan Problem List Problem List: Activity Tolerance, Functional Strength, Safety, Balance, Gait, Transfer, Bed Mobility, ROM Treatment/Plan Treatment Plan: Continue Plan of Care Treatment Plan: Bed Mobility, Education, Functional Activity Gera, Functional Strength, Gait, Safety, Therapeutic Exercise, Transfers Treatment Duration: Aug 06, 2022 Frequency: 6 times per week Estimated Hrs Per Day: .5 hour per day Patient and/or Family Agrees t: Yes Safety Risks/Education Patient Education: Gait Training, Transfer Techniques, Correct Positioning, Safety Issues Teaching Recipient: Patient Teaching Methods: Demonstration, Discussion Response to Teaching: Reinforcement Needed Time/GCodes Time In: 0832 Time Out: 08 Total Billed Treatment Time: 11 Total Billed Treatment 1 visit FA 11JUANA DRAKE PT Jul 27, 2022 09:04
--- NOTE | 2022-07-27 11:56 | Discharge Summary ---
Discharge Summary Hospital Course Hospital Course Date of Admission: Jul 25, 2022 at 10:40 Admission Diagnosis : Right Hip Primary Osteoarthritis Family Physician/Provider: Justin Mora MD Date of Discharge: 07/27/22 Discharge Diagnosis: [ Right Hip Primary Osteoarthritis] Hospital Course: [On 07/25/22, patient was admitted and underwent right total hip arthroplasty. Tolerated the procedure well and was admitted to the regular floor. On the night of surgery, did begin mechanical DVT prophylaxis. On POD #1, began to work with therapy and did well. Pain was controlled on oral pain medication, and chemical DVT prophylaxis was started. On POD #2, continued to make good progress with mobility and was transitioning positions independently and ambulating with walker in hallways; ready for discharge home with home health. ] Labs and Pending Lab Test: Laboratory Tests 07/27/22 05:18: Hemoglobin 9.7L, Hematocrit 29L Microbiology 07/25/22 MRSA Screen - Final, Complete MRSA not isolated Home Meds Active Reported Calcium + Vitamin D Tablet (Calcium Carbonate/Vitamin D3) 600 Mg Calcium-5 Mcg (200 Unit) Tablet 1 Each PO DAILY Vitamin D2 (Ergocalciferol (Vitamin D2)) 1,250 Mcg (43379 Unit) Capsule 1,250 Mcg PO TUES Omeprazole 20 Mg Tablet.dr 20 Mg PO DAILY LAST FILLED 05-19-2022 # DAY SUPPLY Gabapentin 400 Mg Capsule 400 Mg PO HS Gabapentin 100 Mg Capsule 100 Mg PO 1500 Pravastatin Sodium 80 Mg Tablet 80 Mg PO HS Assessment/Pt Instructions WBAT on Right leg; walker for assist; posterolateral hip dislocation precautions; dry dressing daily Discharge Instructions Discharge Diet: Regular Diet Discharge Physical Examination Vital Signs Vital Signs Date Time Temp Pulse Resp B/P (MAP) Pulse Ox O2 Delivery O2 Flow Rate FiO2 07/27/22 09:19 36.3 07/27/22 08:45 119/51 (73) 07/27/22 08:26 69 18 95 Room Air 07/27/22 07:44 0.00 Extremity: Other (Dressing C/D/I, +DF of ankle, no s/s of DVT) Allergies: Coded Allergies: Penicillins (Verified Allergy, Unknown, HIVES, 07/05/22) aspirin (Verified Allergy, Unknown, NAUSEA, 07/05/22) nitrofurantoin (Verified Allergy, Unknown, 07/05/22) Discharge Summary Date of Admission Jul 25, 2022 at 10:40 Date of Discharge JAILYN MERCHANT MD Jul 27, 2022 11:56
--- NOTE | 2022-07-27 11:58 | D/C HH Face to Face Order ---
D/C Face to Face Orders Instructions for Patient Via [facility], Patient Instructions/FollowUp: WBAT on right leg; walker for assist; posterior hip precautions; dry dressing daily Physician to follow Patient: Chris Hernadez Discharge Diet for Home: Regular Diet Patient Data-Allergies,Ht & Wt Patient Allergies: Coded Allergies: Penicillins (Verified Allergy, Unknown, HIVES, 07/05/22) aspirin (Verified Allergy, Unknown, NAUSEA, 07/05/22) nitrofurantoin (Verified Allergy, Unknown, 07/05/22) Height (Feet): 5 Height (Inches): 1.00 Weight (Pounds): 159 Weight (Ounces): 1.0 Home Health Need/Face to Face Date of Face to Face: Jul 27, 2022 Clinical Findings: Muscle weakness, Pain with ambulation, Unsteady gait I have seen Pt askb-jg-jmcd: Yes Discharged To: Home Diagnosis/Conditions: Right Hip Primary Osteoarthritis s/p Right Total Hip Arthroplasty Patient is Homebound due to: Muscle weakness, Pain w/ambulation Homebound Status Due to the above stated illness, injury or surgical procedure (medical condition or diagnosis) and associated clinical findings, the patient is homebound because of his/her inability to leave home except with aid of a supportive device and/or person AND leaving the home requires a considerable and taxing effort or is medically contraindicated. Pt req the following assistanc: Walker Home Health Nursing Orders Home Health Services Order: Physical Therapy-Evaluate & Treat Home Health Infusion Therapy Line Start Date: Jul 25, 2022 Therapy Orders Therapy Orders: Physical Therapy Therapy Specific Orders: Gait training, Increase strength/endurance, Restore ROM Certify Stmt I certify that this patient is under my care and that I, a nurse practitioner or a physician; a resident assistant cna working with me, had a face to face encounter that - meets the physician face to face encounter requirements with this patient as dated. CHRIS HERNADEZ MD Jul 27, 2022 11:58
[2022-07-27] MEDS ORDERED: HYDR-34 PO (12:00)
[2022-07-27 12:02] VITALS: BP 119/73
[2022-07-27 14:00] VITALS: BP 119/73
--- NOTE | 2022-07-27 14:36 | Anesthesia-General Post-Op ---
General Patient Condition Mental Status/LOC: Same as Preop Cardiovascular: Satisfactory Nausea/Vomiting: Absent Respiratory: Satisfactory Pain: Controlled Complications: Absent Post Op Complications Complications None Follow Up Care/Instructions Patient Instructions None needed. Anesthesia/Patient Condition Patient Condition Patient was just discharged to home. I saw her in PACU after the surgery and she was doing well. She was doing well, no complaints, stable vital signs, no apparent adverse anesthesia problems per nursing staff prior to her discharge today. DELILAH GARCIA DO Jul 27, 2022 14:36
== END 2022-07-27 11:45 | disposition home health service (06) ==
LOC: SDC 06:07 → EDSTATUS 08:00 → 4TH 10:40 → UNDOADMOB 10:40 → SDC 10:40 → 4TH 10:49 → UNDODISOB 07-27 14:00
PROVIDERS: ADMIT Orthopaedic Surgery; ATTEND Orthopaedic Surgery
DX: M16.11 Unilateral primary osteoarthritis, right hip (principal); Z87.891 Personal history of nicotine dependence
CPT/HCPCS: 27130; 72170; 82947; 85014 ×2; 85018 ×2; 87081; 94664; 96361; 96366; 97110; 97116; 97162; 97165; 97530; 97535; C1776 ×4; G0378; G0379; 36415

== ENCOUNTER → 2022-08-09 | Outpatient (CLI) | payer MEDICARE, OTHER ==
[~2022-08-09] MED LIST changes: +CALC-140 PO
== END ==
LOC: ORTHO 16:53
PROVIDERS: ATTEND Orthopaedic Surgery
DX: Z47.89 Encounter for other orthopedic aftercare (principal); K21.9 Gastro-esophageal reflux disease without esophagitis; E78.00 Pure hypercholesterolemia, unspecified; Z98.890 Other specified postprocedural states

== ENCOUNTER → 2022-09-08 | Outpatient (CLI) | payer MEDICARE, OTHER ==
--- NOTE | 2022-09-08 17:54 | Diagnostic Imaging Report ---
INDICATION: Right hip pain. Comparison with 07/25/2022 FINDINGS: 2 views. Total arthroplasty of the hip is again noted. Components are all in good alignment. No evidence of hardware loosening. There are no bony fractures. IMPRESSION: Stable appearing arthroplasty of the right hip. Dictated by: Dictated on workstation # [id number]
== END ==
LOC: ORTHO 10:09
PROVIDERS: ATTEND Orthopaedic Surgery
DX: Z47.89 Encounter for other orthopedic aftercare (principal); Z96.641 Presence of right artificial hip joint
CPT/HCPCS: 73502

== ENCOUNTER → 2022-10-25 | Outpatient (CLI) | payer MEDICARE, OTHER | LOC: ORTHO 10:16 | PROVIDERS: ATTEND Orthopaedic Surgery | DX: Z47.89 Encounter for other orthopedic aftercare (principal) ==

== ENCOUNTER → 2023-01-25 | Outpatient (CLI) | payer MEDICARE, OTHER | LOC: ORTHO 08:47 | PROVIDERS: ATTEND Orthopaedic Surgery | DX: Z96.641 Presence of right artificial hip joint (principal); M81.0 Age-related osteoporosis without current pathological fracture; E78.00 Pure hypercholesterolemia, unspecified | CPT/HCPCS: 99213 ==

== ENCOUNTER → 2023-04-17 | Outpatient (CLI) | payer MEDICARE, OTHER ==
--- NOTE | 2023-04-17 12:42 | Diagnostic Imaging Report ---
PROCEDURE: MRI lumbar spine. TECHNIQUE: Multiplanar, multisequence MRI of the lumbar spine was performed without contrast. INDICATION: Low back pain. COMPARED: 11/14/2017. FINDINGS: Transitional anatomy with lumbarization of the S1 segment and rudimentary S1-S2 disc. Same level assignment is provided on prior report. The lower thoracic cord and conus appeared normal. Vertebral statures normal. The alignment anatomic. No marrow edema. No endplate Modic changes. Ligamentous structures intact. The alignment is anatomic. T12-L1: Level and disc unremarkable. There is no stenosis. L1-L2: Mild anterior osteophyte disc material results in no stenosis, this level is stable. L2-L3: Mild circumferential disc bulge with mild thickening ligament flava and facet arthrosis. There is a mild degree of spinal canal stenosis but no significant foraminal narrowing. Degenerative change at this level showed mild progression. L3-L4: Thickened ligamenta flava and facet arthrosis are present. The disc shows no substantial displacement but owing to posterior element of hypertrophy, there is mild canal stenosis and mild right with mild to moderate left foraminal narrowing, foraminal stenoses increased. L4-L5: Buckle thickened ligamenta flava and facet arthrosis are present with increased posterior element degenerative hypertrophy. There is moderate to severe right and moderate left foraminal narrowing similar on the right but increased on the left. There is a mild to moderate canal stenosis increased. L5-S1: Degenerative facet arthrosis with buckle thickened ligamenta flava and mild disc bulge with endplate osteophytes result in severe right and moderate left foraminal stenoses, these have also increased. S1-S2: No significant stenosis. IMPRESSION: Degenerative changes to the discs, endplates, facets and ligamenta flava result in multilevel foraminal greater than canal stenoses detailed level by level above showing overall mild interval progression from 2017 but stable normal alignment and no acute bony abnormality. Dictated by: Dictated on workstation # [id number]
== END ==
LOC: RAD 09:50
PROVIDERS: ATTEND Internal Medicine
DX: M25.78 Osteophyte, vertebrae (principal); M51.26 Other intervertebral disc displacement, lumbar region; M48.061 Spinal stenosis, lumbar region without neurogenic claudication; M47.26 Other spondylosis with radiculopathy, lumbar region; M51.16 Intervertebral disc disorders with radiculopathy, lumbar region; M47.817 Spondylosis without myelopathy or radiculopathy, lumbosacral region; M48.07 Spinal stenosis, lumbosacral region
CPT/HCPCS: 72148

== ENCOUNTER → 2023-07-26 | Outpatient (CLI) | payer MEDICARE, OTHER ==
--- NOTE | 2023-07-26 17:43 | Diagnostic Imaging Report ---
INDICATION: Pain. FINDINGS: AP pelvis and two-view bilateral hips performed. There is bilateral total hip replacement without radiographically apparent complication. No osteolysis. No periprosthetic fracture. No acute-appearing abnormality. IMPRESSION: Good appearance of bilateral total hips. No unexpected or acute-appearing abnormality. Dictated by: Dictated on workstation # [id number]
== END ==
LOC: ORTHO 11:01
PROVIDERS: ATTEND Orthopaedic Surgery
DX: Z96.643 Presence of artificial hip joint, bilateral (principal); E78.00 Pure hypercholesterolemia, unspecified
CPT/HCPCS: 73523; G0463; 99213